=== PATIENT | female | born 1995 | race Caucasian/White ===

== ENCOUNTER 2016-09-12 10:11 | Emergency (ER) | payer OTHER ==
[~2016-09-12] VITALS: Ht 167.6 cm; Wt 132.0 kg
[~2016-09-12 10:11] MED LIST: PARO1TAB29 PO; SPR28 PO
[2016-09-12 10:16] VITALS: TEMP 36.6; Ht 167.6 cm; Wt 132.0 kg
[2016-09-12] MEDS ORDERED: VORT1TAB3 PO (10:35)
[2016-09-12 11:04] LABS: URINE APPEARANCE CLEAR (CLEAR); URINE BILIRUBIN NEG (NEG); URINE COLOR YELLOW; URINE NITRITE NEG (NEG); URINE PH 5.5 (4.5-7.5); URINE SPECIFIC GRAVITY 1.025 (1.000-1.030); UROBILINOGEN NEG (NEG)
--- NOTE | 2016-09-12 11:04 | EMERGENCY ROOM VISIT NOTE ---
History Report prepared by Mari: Germán Baron Under the Supervision of: Dr. Tracy Solano M.D. First contact with patient: 10:41 Chief Complaint: MENTAL HEALTH EVALUATION Stated Complaint: SEVERE ANXIETY/DEPRESSION, MEDICATION NOT WORKING History of Present Illness The patient is a 20 year old female who presents to the Emergency Room with complaints of persistent anxiety that has been worsening over the past few weeks. The patient notes that she has been trying to see her PCP but has not been able to get in the office to see him. She notes that she feels like her medications are no longer working. The patient currently takes Trintellix and Ativan as needed. She notes that the Ativan does not seem to help her anxiety and that it just makes her tired. The patient complains of anxiety attacks where she feels like she can't breathe, has trouble controlling her thoughts, is crying, and feels more fatigued than normal. The patient denies suicidal ideation, thoughts of harming herself, alcohol, or other drug use at this time. She has not been hospitalized for anxiety or depression in the past. Currently, she is interested in inpatient treatment for her symptoms because she feels that she has not been functioning normally. Source of History: patient Onset: past few weeks Position: other (global) Timing: worsening, other (persistent) Associated Symptoms: + fatigue Note: Other associated symptoms: feeling like she can't breathe, trouble controlling her thoughts, crying Denies: suicidal ideation, thoughts of harming herself, alcohol use, drug use Review of Systems See HPI for pertinent positives & negatives. A total of 10 systems reviewed and were otherwise negative. Past Medical & Surgical Medical Problems: (1) No Known Active Medical Problems Family History No significant family history Social History Smoking Status: Never Smoker Alcohol Use: none Marital Status: single Housing Status: lives with family Occupation Status: employed Current/Historical Medications Scheduled Vortioxetine HBr (Trintellix), 20 MG PO DAILY Scheduled PRN Lorazepam (Ativan), 0.5 MG PO UD PRN for Anxiety Allergies Coded Allergies: Sertraline (Verified Adverse Reaction, Intermediate, "makes me feel not myself", 09/12/16) Physical Exam Vital Signs Date Time Temp Pulse Resp B/P Pulse Ox O2 Delivery O2 Flow Rate FiO2 09/12/16 13:41 79 18 156/98 98 09/12/16 12:45 80 18 138/98 98 Room Air 09/12/16 10:59 77 18 131/97 97 Room Air 09/12/16 10:16 36.6 99 18 167/109 97 Room Air Physical Exam Vital signs reviewed. General: Obese. well-appearing female, in no significant distress. HEENT: No scleral icterus, PERRLA, neck supple. Atraumatic. Cardiovascular: Regular rate and rhythm, no extra sounds. Pulmonary: Clear to auscultation bilaterally, normal work of breathing. Abdomen: Soft, nontender, nondistended, positive bowel sounds. Musculoskeletal: Atraumatic, no peripheral edema. Neurologic: Patient awake alert and oriented x 3, full strength in all 4 extremities. Cranial nerves 2 through 12 grossly intact. Skin: Warm, dry, no rash Psych: negative suicidal or homicidal ideation Medical Decision & Procedures Laboratory Results 09/12/16 11:53 Red Blood Count 4.82, Mean Corpuscular Volume 85.1, Mean Corpuscular Hemoglobin 29.9, Mean Corpuscular Hemoglobin Concent 35.1, Mean Platelet Volume 8.9, Neutrophils (%) (Auto) 60.3, Lymphocytes (%) (Auto) 31.0, Monocytes (%) (Auto) 7.6, Eosinophils (%) (Auto) 0.6, Basophils (%) (Auto) 0.4, Neutrophils # (Auto) 4.31, Lymphocytes # (Auto) 2.21, Monocytes # (Auto) 0.54, Eosinophils # (Auto) 0.04, Basophils # (Auto) 0.03 09/12/16 11:53 Test 09/12/16 10:30 09/12/16 10:43 09/12/16 11:53 Urine Color YELLOW Urine Appearance CLEAR (CLEAR) Urine pH 5.5 (4.5-7.5) Urine Specific [place] 1.025 (1.000-1.030) Urine Protein NEG (NEG) Urine Glucose (UA) NEG (NEG) Urine Ketones NEG (NEG) Urine Occult Blood 3+ (NEG) Urine Nitrite NEG (NEG) Urine Bilirubin NEG (NEG) Urine Urobilinogen NEG (NEG) Urine Leukocyte Esterase NEG (NEG) Urine WBC (Auto) 1-5 /hpf (0-5) Urine RBC (Auto) 5-10 /hpf (0-4) Urine Hyaline Casts (Auto) 1-5 /lpf (0-5) Urine Epithelial Cells (Auto) >30 /lpf (0-5) Urine Bacteria (Auto) NEG (NEG) Urine Opiates Screen NEG (NEG) Urine Methadone, Qualitative NEG (NEG) Urine Barbiturates NEG (NEG) Urine Phencyclidine (PCP) Level NEG (NEG) Ur Amphetamine/Methamphetamine NEG (NEG) MDMA (Ecstasy) Screen NEG (NEG) Urine Benzodiazepines Screen NEG (NEG) Urine Cocaine Metabolite NEG (NEG) Urine Marijuana (THC) NEG (NEG) Bedside Urine Test NEG (NEG) White Blood Count 7.14 K/uL (4.8-10.8) Red Blood Count 4.82 M/uL (4.2-5.4) Hemoglobin 14.4 g/dL (12.0-16.0) Hematocrit 41.0 % (37-47) Mean Corpuscular Volume 85.1 fL (80-100) Mean Corpuscular Hemoglobin 29.9 pg (25-34) Mean Corpuscular Hemoglobin Concent 35.1 g/dl (32-36) Platelet Count 242 K/uL (130-400) Mean Platelet Volume 8.9 fL (7.4-10.4) Neutrophils (%) (Auto) 60.3 % Lymphocytes (%) (Auto) 31.0 % Monocytes (%) (Auto) 7.6 % Eosinophils (%) (Auto) 0.6 % Basophils (%) (Auto) 0.4 % Neutrophils # (Auto) 4.31 K/uL (1.4-6.5) Lymphocytes # (Auto) 2.21 K/uL (1.2-3.4) Monocytes # (Auto) 0.54 K/uL (0.11-0.59) Eosinophils # (Auto) 0.04 K/uL (0-0.5) Basophils # (Auto) 0.03 K/uL (0-0.2) RDW Standard Deviation 37.6 fL (36.4-46.3) RDW Coefficient of Variation 12.2 % (11.5-14.5) Immature Granulocyte % (Auto) 0.1 % Immature Granulocyte # (Auto) 0.01 K/uL (0.00-0.02) Anion Gap 10.0 mmol/L (3-11) Est Creatinine Clear Calc Drug Dose 150.1 ml/min Estimated GFR () 117.7 Estimated GFR (Non- 101.6 BUN/Creatinine Ratio 15.5 (10-20) Calcium Level 8.6 mg/dl (8.5-10.1) Total Bilirubin 0.6 mg/dl (0.2-1) Direct Bilirubin 0.1 mg/dl (0-0.2) Aspartate Amino Transf (AST/SGOT) 42 U/L (15-37) Alanine Aminotransferase (ALT/SGPT) 95 U/L (12-78) Alkaline Phosphatase 91 U/L (45-117) Total Protein 7.7 gm/dl (6.4-8.2) Albumin 3.7 gm/dl (3.4-5.0) Salicylates Level < 1.7 mg/dl (2.8-20) Acetaminophen Level < 2 ug/ml (10-30) Ethyl Alcohol mg/dL < 3.0 mg/dl (0-3) Laboratory results per my review. ED Course 1042: Past medical records reviewed. The patient was evaluated in room A6. A complete history and physical examination was performed. 1317: Upon reevaluation, the patient appeared to have improvement of her symptoms. I discussed findings with her. She verbalized agreement of the treatment plan. The patient was discharged home. Medical Decision Differential diagnosis: Etiologies such as mood disorder, infection, hypoglycemia, electrolyte abnormalities, cardiac sources, intracerebral event, toxicologic, neurologic, as well as others were entertained. This pt was evaluated and medically cleared. She was evaluated by mental health shelter case manager. Pt has never been inpatient for psychiatric care, nor has she had outpt counseling. At this time she does not meet criteria for inpt care but arrangements for psychiatric intake exam have been made for tomorrow. Pt is happy with the plan and agrees. She will return to the ED for worsening of symptoms or any medical concerns. Impression Primary Impression: Acute anxiety Scribe Attestation The scribe's documentation has been prepared under my direction and personally reviewed by me in its entirety. I confirm that the note above accurately reflects all work, treatment, procedures, and medical decision making performed by me. Departure Information Dispostion Home / Self-Care Referrals Jesus Harrison M.D. (PCP) Forms HOME CARE DOCUMENTATION FORM, IMPORTANT VISIT INFORMATION Patient Instructions My [facility] Additional Instructions Diagnosis: Acute anxiety Continue your medications as prescribed. Follow-up with [facility] tomorrow as scheduled for intake regarding a psychiatrist and counselor. Return to the ER immediately for worsening of symptoms, suicidal thoughts or any medical concerns. Contact [facility] for emergent psychiatric needs.
[2016-09-12 11:27] LABS: BENZODIAZEPINE, URINE NEG (NEG); COCAINE,URINE NEG (NEG); PHENCYCLIDINE, URINE NEG (NEG)
[2016-09-12 11:32] LABS: MANUAL MICROSCOPIC REQUIRED? NO; REVIEW REQ? NO; URINE EPITHELIAL CELL AUTO >30 /lpf (0-5); ZZUR CULT IF INDIC CLEAN CATCH NO
[2016-09-12 12:08] LABS: BASO % 0.4 %; BASO ABS # 0.03 K/uL (0-0.2); COMPLETE YES; EOS % 0.6 %; IG% 0.1 %; LYMPH ABS # 2.21 K/uL (1.2-3.4); MEAN CELL VOLUME 85.1 fL (80-100); MEAN CORPUSCULAR HEMOGLOBIN 29.9 pg (25-34); MEAN CORPUSCULAR HGB CONC 35.1 g/dl (32-36); MEAN PLATELET VOLUME 8.9 fL (7.4-10.4); MONO % 7.6 %; NEUT % 60.3 %; PLATELET COUNT 242 K/uL (130-400); RED BLOOD COUNT 4.82 M/uL (4.2-5.4); WHITE BLOOD COUNT 7.14 K/uL (4.8-10.8)
[2016-09-12 12:26] LABS: BUN/CREATININE RATIO 15.5 (10-20); CALCIUM 8.6 mg/dl (8.5-10.1); CREATININE 0.82 mg/dl (0.60-1.20); POTASSIUM 3.7 mmol/L (3.5-5.1)
[2016-09-12 12:29] LABS: ACETAMINOPHEN < 2 ug/ml (10-30)
[2016-09-12 13:41] VITALS: BP 156/98; PULSE 79; O2SAT 98
[2016-09-15 17:35] LABS: SYNTHETIC CANNABINOIDS QL URIN NEGATIVE (Negative)
[2016-10-21] MEDS ORDERED: LORA-741 PO (10:35)
== END 2016-09-12 13:46 | disposition home or self-care (01) ==
LOC: C.EDB 10:13 → C.EDA 13:46
DX: F41.9 Anxiety disorder, unspecified (principal)

== ENCOUNTER 2016-10-21 13:52 | Emergency (ER) | payer OTHER ==
[~2016-10-21] VITALS: Ht 167.6 cm; Wt 128.0 kg
[~2016-10-21 13:52] MED LIST changes: +LORA-741 PO; -PARO1TAB29 PO; -SPR28 PO; +VORT1TAB3 PO
[2016-10-21 13:57] VITALS: TEMP 36.9; Ht 167.6 cm; Wt 128.0 kg
[2016-10-21] MEDS ORDERED: SODIUM CHLORIDE 0.9% 1000ML 1,000 ML IV STA (14:28)
--- NOTE | 2016-10-21 14:51 | EMERGENCY ROOM VISIT NOTE ---
History First contact with patient: 14:20 Chief Complaint: OTHER COMPLAINT Stated Complaint: PROBLEMS W/BOWEL MOVEMENT, STOMACH PAIN History of Present Illness The patient is a 21 year old female who presents to the Emergency Room with complaints of constipation. The patient has a history of irritable bowel syndrome. The patient states that she was started on new anxiety medicine a few weeks ago. She states she has also started [employer] and has been watching what she eats. She states that she has had constipation. She states that she has been passing only very small amounts of stool. She states she has had sharp left-sided abdominal pain. She rates her discomfort an 8/10. She has been taking Colace. She states it has not helped. She denies any fevers or chills. She denies any pain in her chest or trouble breathing. She denies any nausea, vomiting or diarrhea. She denies any urinary symptoms. Review of Systems A 10 system review of systems was completed with positives and pertinent negatives listed in the HPI. Past Medical/Surgical History Medical Problems: (1) Anxiety Surgical Problems: (1) Hx of cholecystectomy Family History No significant family history Social History Smoking Status: Never Smoker Alcohol Use: none Marital Status: single Housing Status: lives with family Occupation Status: employed Current/Historical Medications Scheduled Protriptyline Hcl (Protriptyline Hcl), 5 MG PO BID Scheduled PRN Lorazepam (Ativan), 0.5 MG PO UD PRN for Anxiety Ondansetron (Ondansetron Odt), 1 TAB SL TID PRN for Nausea Allergies Coded Allergies: Sertraline (Verified Adverse Reaction, Intermediate, "makes me feel not myself", 09/12/16) Physical Exam Vital Signs Date Time Temp Pulse Resp B/P Pulse Ox O2 Delivery O2 Flow Rate FiO2 10/21/16 17:12 113 16 142/118 98 Room Air 10/21/16 13:57 36.9 81 16 159/96 98 Room Air Physical Exam VITALS: Vitals are noted on the nurse's note and reviewed by myself. Vital signs stable. The patient is afebrile. GENERAL: This is a 21-year-old female, in no acute distress, nondiaphoretic, well-developed well-nourished. SKIN: The skin was without rashes, erythema, edema, or bruising. There is no tenting of the skin. Capillary reflex less than 2 seconds. HEAD: Normocephalic atraumatic. EARS: The external ears are normal in appearance. EYES: Pupils equal round and reactive to light and accommodation. Conjunctivae without injection, sclerae without icterus. Extraocular movements intact. NOSE: Patent, turbinates without inflammation or discharge. MOUTH: Mucous membranes moist. Tonsils are not enlarged. Pharynx without erythema or exudate. Uvula midline. Airway patent. Tongue does not deviate. NECK: Supple without nuchal rigidity. No lymphadenopathy. No thyromegaly. Cervical spine is nontender. No JVD. HEART: Regular rate and rhythm without murmurs gallops or rubs. LUNGS: Clear to auscultation bilaterally without wheezes, rales or rhonchi. No retractions or accessory muscle use. ABDOMEN: Positive bowel sounds x 4. Soft, mild diffuse tenderness, without masses or organomegaly. MUSCULOSKELETAL: No muscle atrophy, erythema, or edema noted. Full range of motion in all extremities. Normal gait. Strength 5/5 throughout. NEURO: Patient was alert and oriented to person place and time. No focal neurological deficits. Medical Decision & Procedures ER Provider Diagnostic Interpretation: ABDOMEN 2VIEW W/PA CHEST RTN CLINICAL HISTORY: abdominal pain, constipation pain COMPARISON STUDY: None FINDINGS: Lungs are clear. Diaphragms smooth. Nonobstructive bowel pattern. Prior cholecystectomy. IMPRESSION: No acute process Laboratory Results 10/21/16 14:40 Red Blood Count 4.35, Mean Corpuscular Volume 87.4, Mean Corpuscular Hemoglobin 30.6, Mean Corpuscular Hemoglobin Concent 35.0, Mean Platelet Volume 9.6, Neutrophils (%) (Auto) 66.1, Lymphocytes (%) (Auto) 25.1, Monocytes (%) (Auto) 7.4, Eosinophils (%) (Auto) 1.0, Basophils (%) (Auto) 0.3, Neutrophils # (Auto) 5.08, Lymphocytes # (Auto) 1.93, Monocytes # (Auto) 0.57, Eosinophils # (Auto) 0.08, Basophils # (Auto) 0.02 10/21/16 14:40 Test 10/21/16 14:40 10/21/16 15:25 White Blood Count 7.69 K/uL (4.8-10.8) Red Blood Count 4.35 M/uL (4.2-5.4) Hemoglobin 13.3 g/dL (12.0-16.0) Hematocrit 38.0 % (37-47) Mean Corpuscular Volume 87.4 fL (80-100) Mean Corpuscular Hemoglobin 30.6 pg (25-34) Mean Corpuscular Hemoglobin Concent 35.0 g/dl (32-36) Platelet Count 256 K/uL (130-400) Mean Platelet Volume 9.6 fL (7.4-10.4) Neutrophils (%) (Auto) 66.1 % Lymphocytes (%) (Auto) 25.1 % Monocytes (%) (Auto) 7.4 % Eosinophils (%) (Auto) 1.0 % Basophils (%) (Auto) 0.3 % Neutrophils # (Auto) 5.08 K/uL (1.4-6.5) Lymphocytes # (Auto) 1.93 K/uL (1.2-3.4) Monocytes # (Auto) 0.57 K/uL (0.11-0.59) Eosinophils # (Auto) 0.08 K/uL (0-0.5) Basophils # (Auto) 0.02 K/uL (0-0.2) RDW Standard Deviation 41.4 fL (36.4-46.3) RDW Coefficient of Variation 12.8 % (11.5-14.5) Immature Granulocyte % (Auto) 0.1 % Immature Granulocyte # (Auto) 0.01 K/uL (0.00-0.02) Anion Gap 8.0 mmol/L (3-11) Est Creatinine Clear Calc Drug Dose 153.6 ml/min Estimated GFR () 124.2 Estimated GFR (Non- 107.2 BUN/Creatinine Ratio 12.2 (10-20) Calcium Level 8.7 mg/dl (8.5-10.1) Total Bilirubin 0.4 mg/dl (0.2-1) Aspartate Amino Transf (AST/SGOT) 25 U/L (15-37) Alanine Aminotransferase (ALT/SGPT) 53 U/L (12-78) Alkaline Phosphatase 90 U/L (45-117) Total Protein 7.5 gm/dl (6.4-8.2) Albumin 3.8 gm/dl (3.4-5.0) Globulin 3.7 gm/dl (2.5-4.0) Albumin/Globulin Ratio 1.0 (0.9-2) Urine Color YELLOW Urine Appearance TURBID (CLEAR) Urine pH 7.5 (4.5-7.5) Urine Specific [place] 1.024 (1.000-1.030) Urine Protein NEG (NEG) Urine Glucose (UA) NEG (NEG) Urine Ketones NEG (NEG) Urine Occult Blood NEG (NEG) Urine Nitrite NEG (NEG) Urine Bilirubin NEG (NEG) Urine Urobilinogen NEG (NEG) Urine Leukocyte Esterase NEG (NEG) Urine WBC (Auto) 5-10 /hpf (0-5) Urine RBC (Auto) 0-4 /hpf (0-4) Urine Hyaline Casts (Auto) 5-10 /lpf (0-5) Urine Epithelial Cells (Auto) >30 /lpf (0-5) Urine Bacteria (Auto) 1+ (NEG) Urine Test NEG (NEG) Medications Administered Medications (Trade) Dose Ordered Sig/Martin Route Start Time Stop Time Status Last Admin Dose Admin Magnesium Citrate (Citrate Of Magnesia Soln) 296 ml ONE STAT PO 10/21/16 16:45 10/21/16 16:47 DC 10/21/16 17:07 296 ML ED Course The patient was seen and examined. Previous visits were reviewed. The patient does not have a fever or leukocytosis. She does not have any significant electrolyte abnormality. Urinalysis suggests contamination. Urine test was negative. Plain films of the abdomen reveal nonobstructive bowel pattern The patient requested the IV be removed because it was uncomfortable. She was not given IV fluids. The patient presents with a reported history of constipation. She had very mild diffuse abdominal tenderness on examination. She does not have a fever or leukocytosis. I do not suspect an acute abdomen at this time. The patient was given mag citrate to take at home. She should return with localized abdominal pain, vomiting, fevers or generalized worsening symptoms. Otherwise, she should follow-up with her family doctor next week. The case was discussed with Dr. Tsang who agrees with the assessment and management plan. Medical Decision DIFFERENTIAL DIAGNOSIS: Hepatitis, cholecystitis, cholangitis, biliary colic, pancreatitis, pneumonia, subdiaphragmatic abscess, appendicitis, inguinal hernia , nephrolithiasis, inflammatory bowel disease, mesenteric adenitis, peptic ulcer disease, GERD, gastritis, pancreatitis, myocardial infarction, pericarditis, ruptured aortic aneurysm, appendicitis, gastroenteritis, bowel obstruction, splenic infarct, diverticulitis, mesenteric ischemia, metabolic, peritonitis, among others. Impression Primary Impression: Constipation Departure Information Dispostion Home / Self-Care Condition GOOD Referrals Jesus Harrison M.D. (PCP) Forms HOME CARE DOCUMENTATION FORM, IMPORTANT VISIT INFORMATION, WORK / SCHOOL INSTRUCTIONS Patient Instructions Constipation, My [employer] Additional Instructions Take the mag citrate when you get home Follow up with your family doctor next week for further evaluation and management Return with worsening symptoms Work Instructions Return To Work: 1 day Problem Qualifiers Primary Impression: Constipation
[2016-10-21 14:55] LABS: BASO % 0.3 %; BASO ABS # 0.02 K/uL (0-0.2); COMPLETE YES; IG% 0.1 %; LYMPH % 25.1 %; LYMPH ABS # 1.93 K/uL (1.2-3.4); MEAN CELL VOLUME 87.4 fL (80-100); MEAN CORPUSCULAR HEMOGLOBIN 30.6 pg (25-34); MEAN PLATELET VOLUME 9.6 fL (7.4-10.4); MONO % 7.4 %; NEUT % 66.1 %; PLATELET COUNT 256 K/uL (130-400); RED BLOOD COUNT 4.35 M/uL (4.2-5.4); WHITE BLOOD COUNT 7.69 K/uL (4.8-10.8)
[2016-10-21 15:11] LABS: BUN/CREATININE RATIO 12.2 (10-20); CALCIUM 8.7 mg/dl (8.5-10.1); CREATININE 0.78 mg/dl (0.60-1.20); POTASSIUM 3.5 mmol/L (3.5-5.1)
[2016-10-21] MEDS ORDERED: ZFRODT4HP SL (15:28)
[2016-10-21] MEDS ORDERED: PROT5TAB PO (15:28)
[2016-10-21 16:04] LABS: URINE APPEARANCE TURBID (CLEAR); URINE BILIRUBIN NEG (NEG); URINE COLOR YELLOW; URINE EPITHELIAL CELL AUTO >30 /lpf (0-5); URINE NITRITE NEG (NEG); URINE PH 7.5 (4.5-7.5); URINE SPECIFIC GRAVITY 1.024 (1.000-1.030); UROBILINOGEN NEG (NEG); ZZUR CULT IF INDIC CLEAN CATCH YES
[2016-10-21 16:22] LABS: MANUAL MICROSCOPIC REQUIRED? NO; REVIEW REQ? NO
--- NOTE | 2016-10-21 16:36 | DIAGNOSTIC IMAGING REPORT ---
ABDOMEN 2VIEW W/PA CHEST RTN CLINICAL HISTORY: abdominal pain, constipation pain COMPARISON STUDY: None FINDINGS: Lungs are clear. Diaphragms smooth. Nonobstructive bowel pattern. Prior cholecystectomy. IMPRESSION: No acute process Electronically signed by: Antonio Bartholomew M.D. 10/21/2016 4:35 PM Dictated Date/Time: 10/21/2016 4:34 PM
[2016-10-21] MEDS ORDERED: MAGNESIUM CITRATE 296 ML/BTL PO STA (16:45)
[2016-10-21 17:12] VITALS: BP 142/118; PULSE 113; O2SAT 98
== END 2016-10-21 17:26 | disposition home or self-care (01) ==
LOC: C.EDB 13:54
DX: K59.00 Constipation, unspecified (principal); F41.9 Anxiety disorder, unspecified; Z90.49 Acquired absence of other specified parts of digestive tract; Z79.899 Other long term (current) drug therapy

== ENCOUNTER 2017-01-25 13:19 | Emergency (ER) | payer OTHER ==
[~2017-01-25] VITALS: Ht 167.6 cm; Wt 126.0 kg
[~2017-01-25 13:19] MED LIST changes: +PROT5TAB PO; -VORT1TAB3 PO; +ZFRODT4HP SL
[2017-01-25 13:21] VITALS: TEMP 36.7; Ht 167.6 cm; Wt 126.0 kg
[2017-01-25] MEDS ORDERED: ESCI10TA17 PO (13:48)
--- NOTE | 2017-01-25 14:07 | EMERGENCY ROOM VISIT NOTE ---
History First contact with patient: 13:31 Chief Complaint: DIZZY Stated Complaint: DIZZY, NAUSEA Nursing Triage Summary: Patient reprots dizziness and nausea x one week History of Present Illness The patient is a 21 year old female who presents to the Emergency Room with complaints of dizziness for the past one week. The patient states that she has had dizziness and nausea daily for the past one week. She reports that these symptoms occur every day. They come on gradually and become worse throughout the day, then get better at night. She states that she feels lightheaded and like the room is spinning. She denies anything that makes the symptoms better or worse. She denies any vomiting. She does feel that she has had increased frequency of urination but denies other urinary symptoms. She initially thought that her symptoms may be due to anxiety, because she does have a history of anxiety and depression. She denies any other significant medical problems. She denies any history of similar symptoms. She denies shortness of breath, fevers, abdominal pain, palpitations or syncope. Review of Systems A complete 10 point review of systems was reviewed with the patient with pertinent positives and negatives as per history of present illness. All else were negative. Past Medical/Surgical History Medical Problems: (1) Anxiety Surgical Problems: (1) Hx of cholecystectomy Family History No significant family history Social History Smoking Status: Never Smoker Alcohol Use: none Marital Status: single Housing Status: lives with family Occupation Status: employed Current/Historical Medications Scheduled Escitalopram (Lexapro), 10 MG PO DAILY Meclizine Hcl (Meclizine Hcl), 1 TAB PO TID Scheduled PRN Lorazepam (Ativan), 0.5 MG PO UD PRN for Anxiety Ondansetron (Ondansetron Odt), 1 TAB SL TID PRN for Nausea Allergies Coded Allergies: Sertraline (Verified Adverse Reaction, Intermediate, "makes me feel not myself", 01/25/17) Physical Exam Vital Signs Date Time Temp Pulse Resp B/P (MAP) Pulse Ox O2 Delivery O2 Flow Rate FiO2 01/25/17 17:29 103 18 134/92 99 01/25/17 16:49 105 18 135/98 98 Room Air 01/25/17 15:31 94 16 131/89 100 Room Air 01/25/17 14:15 94 17 123/93 97 Room Air 96 134/90 101 125/78 01/25/17 14:15 94 17 123/93 97 Room Air 01/25/17 13:58 119 01/25/17 13:21 36.7 86 20 163/119 100 Room Air Physical Exam VITALS: Vitals are noted on the nurse's note and reviewed by myself. Vital signs stable. GENERAL: This is a 21-year-old female, in no acute distress, nondiaphoretic, well-developed well-nourished. SKIN: The skin was without rashes. HEAD: Normocephalic atraumatic. EARS: External auditory canals clear, tympanic membranes pearly crooks without erythema or effusion bilaterally. EYES: Pupils equal round and reactive to light and accommodation. Conjunctivae without injection, sclerae without icterus. Extraocular movements intact. No nystagmus. MOUTH: Mucous membranes moist. Pharynx without erythema or exudate. NECK: Supple without nuchal rigidity. No lymphadenopathy. HEART: Regular rate and rhythm without murmurs gallops or rubs. LUNGS: Clear to auscultation bilaterally without wheezes, rales or rhonchi. MUSCULOSKELETAL: Full range of motion throughout. Strength 5/5 throughout. NEURO: Patient was alert and oriented to person place and time. Normal sensation to light and sharp touch. No focal neurological deficits. Normal finger to nose testing. Medical Decision & Procedures ER Provider Diagnostic Interpretation: SINGLE VIEW CHEST CLINICAL HISTORY: Dizziness. FINDINGS: An AP, portable, upright chest radiograph is compared to study dated 10/21/2016. The examination is degraded by portable technique, large body habitus, and patient rotation. The cardiomediastinal silhouette is unremarkable. The lungs and pleural spaces are clear. No pneumothorax is seen. The bony thorax is grossly intact. IMPRESSION: No active disease in the chest. Laboratory Results 01/25/17 14:05 Red Blood Count 4.60, Mean Corpuscular Volume 88.3, Mean Corpuscular Hemoglobin 30.0, Mean Corpuscular Hemoglobin Concent 34.0, Mean Platelet Volume 9.1, Neutrophils (%) (Auto) 67.1, Lymphocytes (%) (Auto) 22.8, Monocytes (%) (Auto) 8.7, Eosinophils (%) (Auto) 0.8, Basophils (%) (Auto) 0.3, Neutrophils # (Auto) 6.43, Lymphocytes # (Auto) 2.18, Monocytes # (Auto) 0.83, Eosinophils # (Auto) 0.08, Basophils # (Auto) 0.03 01/25/17 14:05 Test 01/25/17 14:05 01/25/17 15:40 White Blood Count 9.58 K/uL (4.8-10.8) Red Blood Count 4.60 M/uL (4.2-5.4) Hemoglobin 13.8 g/dL (12.0-16.0) Hematocrit 40.6 % (37-47) Mean Corpuscular Volume 88.3 fL (80-100) Mean Corpuscular Hemoglobin 30.0 pg (25-34) Mean Corpuscular Hemoglobin Concent 34.0 g/dl (32-36) Platelet Count 288 K/uL (130-400) Mean Platelet Volume 9.1 fL (7.4-10.4) Neutrophils (%) (Auto) 67.1 % Lymphocytes (%) (Auto) 22.8 % Monocytes (%) (Auto) 8.7 % Eosinophils (%) (Auto) 0.8 % Basophils (%) (Auto) 0.3 % Neutrophils # (Auto) 6.43 K/uL (1.4-6.5) Lymphocytes # (Auto) 2.18 K/uL (1.2-3.4) Monocytes # (Auto) 0.83 K/uL (0.11-0.59) Eosinophils # (Auto) 0.08 K/uL (0-0.5) Basophils # (Auto) 0.03 K/uL (0-0.2) RDW Standard Deviation 38.4 fL (36.4-46.3) RDW Coefficient of Variation 12.0 % (11.5-14.5) Immature Granulocyte % (Auto) 0.3 % Immature Granulocyte # (Auto) 0.03 K/uL (0.00-0.02) Anion Gap 6.0 mmol/L (3-11) Est Creatinine Clear Calc Drug Dose 160.4 ml/min Estimated GFR () 132.4 Estimated GFR (Non- 114.2 BUN/Creatinine Ratio 16.1 (10-20) Calcium Level 9.4 mg/dl (8.5-10.1) Total Bilirubin 0.4 mg/dl (0.2-1) Aspartate Amino Transf (AST/SGOT) 13 U/L (15-37) Alanine Aminotransferase (ALT/SGPT) 29 U/L (12-78) Alkaline Phosphatase 105 U/L (45-117) Troponin I < 0.015 ng/ml (0-0.045) Total Protein 7.9 gm/dl (6.4-8.2) Albumin 3.8 gm/dl (3.4-5.0) Globulin 4.1 gm/dl (2.5-4.0) Albumin/Globulin Ratio 0.9 (0.9-2) Thyroid Stimulating Hormone (TSH) 1.810 uIu/ml (0.300-4.500) Human Chorionic Gonadotropin, Qual NEG (NEG) Urine Color YELLOW Urine Appearance CLOUDY (CLEAR) Urine pH 6.5 (4.5-7.5) Urine Specific [place] 1.022 (1.000-1.030) Urine Protein NEG (NEG) Urine Glucose (UA) NEG (NEG) Urine Ketones NEG (NEG) Urine Occult Blood NEG (NEG) Urine Nitrite NEG (NEG) Urine Bilirubin NEG (NEG) Urine Urobilinogen NEG (NEG) Urine Leukocyte Esterase NEG (NEG) Urine WBC (Auto) 5-10 /hpf (0-5) Urine RBC (Auto) 0-4 /hpf (0-4) Urine Hyaline Casts (Auto) 0 /lpf (0-5) Urine Epithelial Cells (Auto) >30 /lpf (0-5) Urine Bacteria (Auto) 1+ (NEG) Urine Renal Epithelial Cells /lpf (0-5) Urine Mucus PRESENT (NONE PRSENT) Urine Test NEG (NEG) ECG Indication: other Rate (beats per minute): 90 Rhythm: normal sinus Findings: no acute ischemic change, no ectopy Comparison ECG Date: no prior available Medical Decision Differential diagnosis includes BPPV, CVA, TIA, orthostatic hypotension, arrhythmia, among others. The patient is a 21-year-old female who presents today complaining of dizziness and lightheadedness. Labs revealed no leukocytosis, anemia or concerning electrolyte abnormalities. Urinalysis was not suggestive of infection. Urine was negative. EKG was interpreted by myself and shows no acute findings. Patient had a benign neurological examination. Orthostatic vital signs were negative. The patient will need to follow-up with her primary care provider within 48 hours for further evaluation. She will be given a prescription for meclizine to try for her dizziness. She was instructed to return here for worsening symptoms. The patient's case was reviewed with Dr. Perez, ED attending physician, who agreed with my assessment and treatment plan. Based on the patient's presentation and work up, I feel the patient is stable for outpatient treatment. The patient was educated to return to the emergency department for any worsening of their current condition or new/concerning symptoms. She will follow up with her primary care provider. Medication reconciliation: I attest that I have personally reviewed the patient 's current medication list. Blood pressure screening: Patient was found to have normal blood pressure on screening and does not require follow-up. Impression Primary Impression: Dizziness Departure Information Dispostion Home / Self-Care Condition GOOD Prescriptions Meclizine Hcl (MECLIZINE HCL) 25 Mg Tab 1 TAB PO TID for 7 Days, #21 TAB Prov: Jocelyne Holly ., ABDIRIZAK 01/25/17 Referrals Gabe Reynolds M.D. (PCP) Patient Instructions [facility] Additional Instructions Meclizine up to 3 times daily as needed for dizziness. Rest and drink plenty of fluids. Call your primary care provider tomorrow to schedule a follow-up appointment. Return to the emergency department as needed for any worsening or new/ concerning symptoms.
[2017-01-25 14:15] LABS: BASO % 0.3 %; BASO ABS # 0.03 K/uL (0-0.2); COMPLETE YES; EOS % 0.8 %; HEMATOCRIT 40.6 % (37-47); IG% 0.3 %; LYMPH % 22.8 %; LYMPH ABS # 2.18 K/uL (1.2-3.4); MEAN CELL VOLUME 88.3 fL (80-100); MEAN PLATELET VOLUME 9.1 fL (7.4-10.4); MONO % 8.7 %; NEUT % 67.1 %; PLATELET COUNT 288 K/uL (130-400); WHITE BLOOD COUNT 9.58 K/uL (4.8-10.8)
[2017-01-25 14:33] LABS: ALT/SGPT 29 U/L (12-78); BLOOD UREA NITROGEN 12 mg/dl (7-18); BUN/CREATININE RATIO 16.1 (10-20); CALCIUM 9.4 mg/dl (8.5-10.1); CARBON DIOXIDE 28 mmol/L (21-32); CHLORIDE 105 mmol/L (98-107); CREATININE 0.74 mg/dl (0.60-1.20); GLUCOSE 86 mg/dl (70-99); POTASSIUM 3.9 mmol/L (3.5-5.1); SODIUM 139 mmol/L (136-145)
[2017-01-25 14:44] LABS: ALB/GLOB RATIO 0.9 (0.9-2); ALKALINE PHOSPHATASE 105 U/L (45-117); AST/SGOT 13 U/L (15-37)
--- NOTE | 2017-01-25 14:46 | DIAGNOSTIC IMAGING REPORT ---
SINGLE VIEW CHEST CLINICAL HISTORY: Dizziness. FINDINGS: An AP, portable, upright chest radiograph is compared to study dated 10/21/2016. The examination is degraded by portable technique, large body habitus, and patient rotation. The cardiomediastinal silhouette is unremarkable. The lungs and pleural spaces are clear. No pneumothorax is seen. The bony thorax is grossly intact. IMPRESSION: No active disease in the chest. Electronically signed by: Félix Dobbins M.D. 01/25/2017 2:44 PM Dictated Date/Time: 01/25/2017 2:44 PM
[2017-01-25 15:37] LABS: PREG INTERNAL NEGATIVE QC NEG CLEAR BACKGROUND; PREG INTERNAL POSITIVE QC POS CONTROL LINE
[2017-01-25 15:57] LABS: URINE APPEARANCE CLOUDY (CLEAR); URINE BILIRUBIN NEG (NEG); URINE COLOR YELLOW; URINE EPITHELIAL CELL AUTO >30 /lpf (0-5); URINE NITRITE NEG (NEG); URINE PH 6.5 (4.5-7.5); URINE SPECIFIC GRAVITY 1.022 (1.000-1.030); UROBILINOGEN NEG (NEG); ZZUR CULT IF INDIC CLEAN CATCH YES
[2017-01-25 16:00] LABS: MANUAL MICROSCOPIC REQUIRED? NO; REVIEW REQ? YES
[2017-01-25 16:13] LABS: URINE MUCUS PRESENT (NONE PRSENT)
[2017-01-25] MEDS ORDERED: MECL1TAB42 PO (17:20)
[2017-01-25 17:29] VITALS: BP 134/92; PULSE 103; O2SAT 99
== END 2017-01-25 17:43 | disposition home or self-care (01) ==
LOC: C.EDB 13:21
DX: R42 Dizziness and giddiness (principal); R11.0 Nausea; F41.9 Anxiety disorder, unspecified; F32.9 Major depressive disorder, single episode, unspecified

== ENCOUNTER 2017-03-07 18:55 | Inpatient (IN) | payer OTHER ==
[~2017-03-07] VITALS: Ht 167.6 cm; Wt 129.6 kg
[~2017-03-07 18:55] MED LIST changes: +ESCI10TA17 PO; -PROT5TAB PO
--- NOTE | 2017-03-07 19:44 | EMERGENCY ROOM VISIT NOTE ---
History Report prepared by Mari: Elizabet Alonso Under the Supervision of: Dr. Frank Kaye M.D. First contact with patient: 19:18 Chief Complaint: MENTAL HEALTH EVALUATION Stated Complaint: SEVERE DEPRESSION,ANXIETY History of Present Illness The patient is a 21 year old female who presents to the Emergency Room with complaints of worsening anxiety and depression that began in September. The patient states that she has been receiving her psychiatric care and medications from her PCP. She states that she was placed on Protriptyline around one year ago. The patient states that two months after that she was placed on Lexapro. She states that in September she stopped both medications. The patient states that she wants to get in to see a psychiatrist, but states that she is on a wait- list for [facility] for 90 days. She denies any suicidal ideation or homicidal ideation. The patient states that she was hospitalized in the past for psychiatric reasons. She denies any drug use, tobacco use, or alcohol use. The patient states that she has been unable to function, noting that she has missed an entire week of work due to her anxiety. The patient's boyfriend states that the patient has no ambition. The patient states that she is feeling hopeless. She denies anything specific making her depression or anxiety worse. The patient states that she would prefer to go inpatient for further psychiatric care. She states that she notices nausea and diarrhea when her anxiety is bad. The patient denies any fever, chills, cough, congestion, vomiting, constipation, or burning with urination. Source of History: patient Onset: September Position: other (global) Quality: other (anxiety and depression) Timing: worsening Associated Symptoms: + nausea, + diarrhea, No fevers, No chills, No cough, No vomiting, No urinary symptoms Review of Systems See HPI for pertinent positives and negatives. A total of ten systems were reviewed and were otherwise negative. Past Medical & Surgical Medical Problems: (1) Anxiety (2) Obesity Surgical Problems: (1) Hx of cholecystectomy Social History Problems: (1) Sexually active Family History No significant family history Social History Smoking Status: Never Smoker Alcohol Use: none Marital Status: single Housing Status: lives with family Occupation Status: employed Current/Historical Medications Scheduled Ethinyl Estradiol/Norethindr (Junel 08/19), 1 TAB PO DAILY Scheduled PRN Lorazepam (Ativan), 0.5 MG PO UD PRN for Anxiety Allergies Coded Allergies: Sertraline (Verified Adverse Reaction, Intermediate, "makes me feel not myself", 03/07/17) Physical Exam Vital Signs Date Time Temp Pulse Resp B/P (MAP) Pulse Ox O2 Delivery O2 Flow Rate FiO2 03/07/17 21:38 36.7 138 20 140/80 98 03/07/17 18:57 36.7 138 20 166/116 98 Room Air Physical Exam GENERAL: Awake, alert, well-appearing, in no distress HENT: Normocephalic, atraumatic. Oropharynx unremarkable. EYES: Normal conjunctiva. Sclera non-icteric. NECK: Supple. No nuchal rigidity. FROM. No JVD. RESPIRATORY: Clear to auscultation. CARDIAC: Regular rate, normal rhythm. Extremities warm and well perfused. Pulses equal. ABDOMEN: Soft, non-distended. No tenderness to palpation. No rebound or guarding. No masses. RECTAL: Deferred. MUSCULOSKELETAL: Chest examination reveals no tenderness. The back is symmetrical on inspection without obvious abnormality. There is no CVA tenderness to palpation. No joint edema. LOWER EXTREMITIES: Calves are equal size bilaterally and non-tender. No edema. No discoloration. NEURO: Normal sensorium. No sensory or motor deficits noted. SKIN: No rash or jaundice noted. PSYCH: Flat depressed affect. Medical Decision & Procedures Laboratory Results 03/07/17 19:55 Red Blood Count 4.38, Mean Corpuscular Volume 89.3, Mean Corpuscular Hemoglobin 30.6, Mean Corpuscular Hemoglobin Concent 34.3, Mean Platelet Volume 9.9, Neutrophils (%) (Auto) 71.8, Lymphocytes (%) (Auto) 19.7, Monocytes (%) (Auto) 7.0, Eosinophils (%) (Auto) 0.8, Basophils (%) (Auto) 0.4, Neutrophils # (Auto) 7.61, Lymphocytes # (Auto) 2.09, Monocytes # (Auto) 0.74, Eosinophils # (Auto) 0.08, Basophils # (Auto) 0.04 03/07/17 19:55 Test 03/07/17 19:20 03/07/17 19:55 03/07/17 19:57 Urine Color YELLOW Urine Appearance CLEAR (CLEAR) Urine pH 6.0 (4.5-7.5) Urine Specific [place] 1.025 (1.000-1.030) Urine Protein NEG (NEG) Urine Glucose (UA) NEG (NEG) Urine Ketones NEG (NEG) Urine Occult Blood NEG (NEG) Urine Nitrite NEG (NEG) Urine Bilirubin NEG (NEG) Urine Urobilinogen NEG (NEG) Urine Leukocyte Esterase NEG (NEG) Urine Opiates Screen NEG (NEG) Urine Methadone, Qualitative NEG (NEG) Urine Barbiturates NEG (NEG) Urine Phencyclidine (PCP) Level NEG (NEG) Ur Amphetamine/Methamphetamine NEG (NEG) MDMA (Ecstasy) Screen NEG (NEG) Urine Benzodiazepines Screen NEG (NEG) Urine Cocaine Metabolite NEG (NEG) Urine Marijuana (THC) NEG (NEG) White Blood Count 10.59 K/uL (4.8-10.8) Red Blood Count 4.38 M/uL (4.2-5.4) Hemoglobin 13.4 g/dL (12.0-16.0) Hematocrit 39.1 % (37-47) Mean Corpuscular Volume 89.3 fL (80-100) Mean Corpuscular Hemoglobin 30.6 pg (25-34) Mean Corpuscular Hemoglobin Concent 34.3 g/dl (32-36) Platelet Count 272 K/uL (130-400) Mean Platelet Volume 9.9 fL (7.4-10.4) Neutrophils (%) (Auto) 71.8 % Lymphocytes (%) (Auto) 19.7 % Monocytes (%) (Auto) 7.0 % Eosinophils (%) (Auto) 0.8 % Basophils (%) (Auto) 0.4 % Neutrophils # (Auto) 7.61 K/uL (1.4-6.5) Lymphocytes # (Auto) 2.09 K/uL (1.2-3.4) Monocytes # (Auto) 0.74 K/uL (0.11-0.59) Eosinophils # (Auto) 0.08 K/uL (0-0.5) Basophils # (Auto) 0.04 K/uL (0-0.2) RDW Standard Deviation 40.1 fL (36.4-46.3) RDW Coefficient of Variation 12.4 % (11.5-14.5) Immature Granulocyte % (Auto) 0.3 % Immature Granulocyte # (Auto) 0.03 K/uL (0.00-0.02) Anion Gap 7.0 mmol/L (3-11) Est Creatinine Clear Calc Drug Dose 142.0 ml/min Estimated GFR () 111.9 Estimated GFR (Non- 96.6 BUN/Creatinine Ratio 18.4 (10-20) Calcium Level 8.7 mg/dl (8.5-10.1) Total Bilirubin 0.2 mg/dl (0.2-1) Direct Bilirubin < 0.1 mg/dl (0-0.2) Aspartate Amino Transf (AST/SGOT) 11 U/L (15-37) Alanine Aminotransferase (ALT/SGPT) 22 U/L (12-78) Alkaline Phosphatase 83 U/L (45-117) Total Protein 7.8 gm/dl (6.4-8.2) Albumin 3.5 gm/dl (3.4-5.0) Globulin 4.3 gm/dl (2.5-4.0) Albumin/Globulin Ratio 0.8 (0.9-2) Thyroid Stimulating Hormone (TSH) 2.140 uIu/ml (0.300-4.500) Ethyl Alcohol mg/dL < 3.0 mg/dl (0-3) Bedside Glucose 102 mg/dl (70-90) Laboratory results reviewed by ma ED Course 1923: The patient was evaluated in room A7. A complete history and physical exam was performed. 2038: Per the psych case packer, the patient has been accepted to [facility] for further treatment and evaluation. The patient is in agreement with the treatment plan. Medical Decision I reviewed the patient's past medical history, medications, and the nursing notes as described above. The patient's presentation and history were concerning for Depression, anxiety, dehydration, UTI, electrolyte imbalance. The patient with pmhx of anxiety and depression presents to the emergency department with worsening anxiety and depression, unable to function/go to work per HPI. On arrival appears depressed but in NAD. AFVSS. Exam unremarkable. Denies drug use, SI/HI, or attempts and self harm. While patient is not a danger to herself or others the severity of her sx to the point where she cannot go to work is concerning that she make continue to decline and therefore inpatient psych admission was requested. Labs unremarkable. Medically cleared and admitted to psych service. Medication Reconcilliation Current Medication List: was personally reviewed by me Blood Pressure Screening Patient's blood pressure: Elevated blood pressure Blood pressure disposition: Elevated BP felt to be situational, Did not require urgent referral Impression Primary Impression: Depression Scribe Attestation The scribe's documentation has been prepared under my direction and personally reviewed by me in its entirety. I confirm that the note above accurately reflects all work, treatment, procedures, and medical decision making performed by me. Departure Information Dispostion Mental Health Acute Care Referrals Marcos Stafford PA-C (PCP)
[2017-03-07 19:56] LABS: MANUAL MICROSCOPIC REQUIRED? NO; REVIEW REQ? NO; URINE APPEARANCE CLEAR (CLEAR); URINE BILIRUBIN NEG (NEG); URINE COLOR YELLOW; URINE NITRITE NEG (NEG); URINE SPECIFIC GRAVITY 1.025 (1.000-1.030); UROBILINOGEN NEG (NEG)
[2017-03-07 20:18] LABS: BENZODIAZEPINE, URINE NEG (NEG); COCAINE,URINE NEG (NEG); PHENCYCLIDINE, URINE NEG (NEG)
[2017-03-07 20:27] LABS: BASO % 0.4 %; BASO ABS # 0.04 K/uL (0-0.2); COMPLETE YES; EOS % 0.8 %; HEMATOCRIT 39.1 % (37-47); IG% 0.3 %; LYMPH % 19.7 %; LYMPH ABS # 2.09 K/uL (1.2-3.4); MEAN CELL VOLUME 89.3 fL (80-100); MEAN CORPUSCULAR HEMOGLOBIN 30.6 pg (25-34); MEAN CORPUSCULAR HGB CONC 34.3 g/dl (32-36); MEAN PLATELET VOLUME 9.9 fL (7.4-10.4); NEUT % 71.8 %; PLATELET COUNT 272 K/uL (130-400); RED BLOOD COUNT 4.38 M/uL (4.2-5.4); WHITE BLOOD COUNT 10.59 K/uL (4.8-10.8)
[2017-03-07 20:45] LABS: ALT/SGPT 22 U/L (12-78); BLOOD UREA NITROGEN 16 mg/dl (7-18); BUN/CREATININE RATIO 18.4 (10-20); CALCIUM 8.7 mg/dl (8.5-10.1); CARBON DIOXIDE 26 mmol/L (21-32); CHLORIDE 106 mmol/L (98-107); CREATININE 0.85 mg/dl (0.60-1.20); GLUCOSE 102 mg/dl (70-99); POTASSIUM 3.7 mmol/L (3.5-5.1); SODIUM 139 mmol/L (136-145)
[2017-03-07 20:55] LABS: ALB/GLOB RATIO 0.8 (0.9-2); ALKALINE PHOSPHATASE 83 U/L (45-117); AST/SGOT 11 U/L (15-37)
[2017-03-07 21:38] VITALS: O2SAT 98
[2017-03-07] MEDS ORDERED: NURSING VERBAL MED ORDER ONE (21:45)
[2017-03-07] MEDS ORDERED: hydrOXYzine HCL 25 MG TAB PO PRN ×2 (22:00)
[2017-03-07] MEDS ORDERED: ALUMINUM/MAGNESIUM SUSP 30 ML UDC PO PRN (22:00)
[2017-03-07] MEDS ORDERED: ACETAMINOPHEN 325 MG TAB PO PRN (22:00)
[2017-03-07] MEDS ORDERED: BISMUTH SUBSALICYLATE PER ML OMNICELL CHARGE PO PRN (22:00)
[2017-03-07] MEDS ORDERED: MAGNESIUM HYDROXIDE SUSP 30 ML UDC PO PRN (22:00)
[2017-03-07] MEDS ORDERED: SODIUM CHLORIDE 0.65% NA SOLN 45 ML (OCEAN) PRN (22:00)
[2017-03-07 22:49] VITALS: BP 148/107; PULSE 105; BMI 46.1
[2017-03-08 06:53] VITALS: Ht 167.6 cm; Wt 129.6 kg
[2017-03-08 06:58] VITALS: BP_SYST 116; BP_SYST 123; BP_DIAS 78; BP_DIAS 82; PULSE 89; PULSE 99; TEMP 36.7
[2017-03-08] MEDS ORDERED: JNL12021 PO (12:19)
[2017-03-08] MEDS ORDERED: DULOXETINE HCL 20 MG CAP PO ONE (12:40)
--- NOTE | 2017-03-08 12:40 | Psychiatric History & Physical ---
History Date of Service Mar 08, 2017. Identifying Data Olena Beckwith is a 21-year-old female who currently lives in [place] with her boyfriend, reports a history of depression and anxiety for which she has no outpatient providers, and was admitted on a 201 voluntary commitment after she presented to the emergency room with worsening mood and anxiety and inability to function. Chief Complaint "Anxiety and depression". History of Present Illness Patient reports a history of depression and anxiety since 5th or 6th grade, for which she's been in psychiatric treatment episodically in the past, and most recently managed by her PCP, and has been worsening since for the past 2-3 months, since she stopped taking psych meds. She describes moving frequently, from [place] to [place] then back to [place] before moving to [place]. She moved to [place] in October and says she has had difficulty getting outpatient mental health providers, and although she had an initial intake at [facility], she did not attend follow-up appointments, as she says she was not told about them. She is now unable to schedule with them for 90 days. She is not on psychotropic medications, but has been taking melatonin for sleep, and got a prescription for Ativan 0.5 mg when necessary [place] [address] Jesus Harrison. She reports low mood, poor energy, decreased appetite, disrupted sleep, daily crying spells, and decreased motivation. Sleep is disturbed by "laying there worrying about things," takes an hour to fall asleep , but sleeps through the night. She denies thoughts of not wanting to be alive or ending her life, is able to enjoy time with others, and is hopeful that things could improve. She also endorses increased anxiety, avoidance, and worrying about lots of things (paying her bills). Reports panic attacks with shakiness, SOB, sweating, and tearfulness, lasting minutes, and occurring 2-3 times a day. She has a prescription for Ativan 0.5mg from her PCP, which she uses twice a week. She has been staying home from work for the past week, lying in bed all day crying, and is fearful of losing her job. She has been getting psych meds from her PCP, [email or web address], and has tried multiple antidepressants, most recently protriptyline and escitalopram, which she took for a few months, and then tapered off them as they weren't working. She has not followed up with them, saying they have been "too booked." She describes a pattern of having a couple good days where she is "really happy" and feels good , and will abruptly become depressed and anxious without a trigger. She reports more bad days then good days, about 60% bad days. Good periods last hours, and denies decreased need for sleep or increase in goal directed behavior/pleasure seeking. Has never had a manic episode or psychotic symptoms. Denies OCD, PTSD, and eating disorder. Says she decided to come to the ER yesterday because "every day it's just getting worse, and knowing I was on the 90 day wait list just made it worse." Past Psychiatric History Current OP Treatment: no current treatment (was seen at [facility] for an initial appointment, and then missed her follow-up appointment, so is now unable to be seen there for 90 days) Prior OP Treatment: psychiatrist (at [facility] in the past) Prior Psych Hospitalizations: none Access to a Gun: No Suicide Attempts: No Past Medication Trials "A lot of things, can't remember a lot of them." sertraline - felt "like a zombie, really tired and cried all the time" escitalopram - took with protriptyline, says it was supposed to help with anxiety, but did not paroxetine - can't recall what happened buspirone - can't recall what happened venlafaxine XR - headaches Brintellix - seemed to help initially, then switched to Trintellix, which didn' t work Protriptyline - prescribed October [address] Marcos Stafford (PCP in [facility]), helped with depression, but panic worsened Trintellix - prescribe June [address] Jesus Harrison, ineffective citalopram - prescribed by psychiatrist at [facility], thinks it caused weight gain Has never tried Prozac, Cymbalta, aripiprazole. Additional Notes Diagnosed with depression, since 5th or 6th grade. Has had partial hospitalization and outpatient psychiatry and therapy in the past. Past Medical/Surgical History (1) Obesity PCP is [facility]. . Is sexually active, takes oral contraceptive but doesn't know the name. Last period was a month ago. Allergies Allergies: Coded Allergies: Sertraline (Verified Adverse Reaction, Intermediate, "makes me feel not myself", 03/07/17) Home Medications Scheduled PRN Lorazepam (Ativan), 0.5 MG PO UD PRN for Anxiety Family History No significant family history History of Suicide: Yes (multiple aunts on both sides attempted suicide by overdose) History of Substance Abuse: No Psychiatric History: Yes (most of dad's family has anxiety and depression, and great aunts and uncles on mother's side "have issues") Alcohol Use Alcohol Use In Past 12 Months: No AUDIT Total Score: 0 Smoking Use Smoking Status: Never Smoker Substance History Denies substance abuse. Personal History Lives in: an apartment in [place] with her boyfriend Jorge - moved here in Apr. Childhood: From [place]. Has a half-brother, and reports good relationship with parents. Education: graduated from high school Work History: Previously worked at a [employer] from 04/2016 - 01/2017 when she resigned, as they were mandating overtime and she felt unable to handle it, so she left. She started working at [employer] a few weeks ago, not sure if she still has a job as missed multiple days. Relationship History: never Children: None Spiritual Affiliation: denies Legal History: none Psychological Trauma History: Denies Hx Traumatic Event Review of Systems 10 systems reviewed, negative except as stated above. Examination Physical Examination A physical exam was performed [in the ER] [on the medical floor] prior to admission to the unit by [ ]. I accept that physical as correct/medical clearance for the inpatient physical exam. Vital Signs Vital Signs Past 12 Hours Date Time Temp Pulse Resp B/P (MAP) Pulse Ox O2 Delivery O2 Flow Rate FiO2 03/08/17 06:58 36.7 89 18 116/78 99 123/82 Laboratory Results Last 24 Hours Test 03/07/17 19:20 03/07/17 19:55 03/07/17 19:57 Urine Color YELLOW Urine Appearance CLEAR Urine pH 6.0 Urine Specific Dorado 1.025 Urine Protein NEG Urine Glucose (UA) NEG Urine Ketones NEG Urine Occult Blood NEG Urine Nitrite NEG Urine Bilirubin NEG Urine Urobilinogen NEG Urine Leukocyte Esterase NEG Urine Opiates Screen NEG Urine Methadone, Qualitative NEG Urine Barbiturates NEG Urine Phencyclidine (PCP) Level NEG Ur Amphetamine/Methamphetamine NEG MDMA (Ecstasy) Screen NEG Urine Benzodiazepines Screen NEG Urine Cocaine Metabolite NEG Urine Marijuana (THC) NEG White Blood Count 10.59 K/uL Red Blood Count 4.38 M/uL Hemoglobin 13.4 g/dL Hematocrit 39.1 % Mean Corpuscular Volume 89.3 fL Mean Corpuscular Hemoglobin 30.6 pg Mean Corpuscular Hemoglobin Concent 34.3 g/dl Platelet Count 272 K/uL Mean Platelet Volume 9.9 fL Neutrophils (%) (Auto) 71.8 % Lymphocytes (%) (Auto) 19.7 % Monocytes (%) (Auto) 7.0 % Eosinophils (%) (Auto) 0.8 % Basophils (%) (Auto) 0.4 % Neutrophils # (Auto) 7.61 K/uL Lymphocytes # (Auto) 2.09 K/uL Monocytes # (Auto) 0.74 K/uL Eosinophils # (Auto) 0.08 K/uL Basophils # (Auto) 0.04 K/uL RDW Standard Deviation 40.1 fL RDW Coefficient of Variation 12.4 % Immature Granulocyte % (Auto) 0.3 % Immature Granulocyte # (Auto) 0.03 K/uL Sodium Level 139 mmol/L Potassium Level 3.7 mmol/L Chloride Level 106 mmol/L Carbon Dioxide Level 26 mmol/L Anion Gap 7.0 mmol/L Blood Urea Nitrogen 16 mg/dl Creatinine 0.85 mg/dl Est Creatinine Clear Calc Drug Dose 142.0 ml/min Estimated GFR () 111.9 Estimated GFR (Non- 96.6 BUN/Creatinine Ratio 18.4 Random Glucose 102 mg/dl Calcium Level 8.7 mg/dl Total Bilirubin 0.2 mg/dl Direct Bilirubin < 0.1 mg/dl Aspartate Amino Transf (AST/SGOT) 11 U/L Alanine Aminotransferase (ALT/SGPT) 22 U/L Alkaline Phosphatase 83 U/L Total Protein 7.8 gm/dl Albumin 3.5 gm/dl Globulin 4.3 gm/dl Albumin/Globulin Ratio 0.8 Thyroid Stimulating Hormone (TSH) 2.140 uIu/ml Ethyl Alcohol mg/dL < 3.0 mg/dl Bedside Glucose 102 mg/dl Mental Examination During interview pt is: alert and oriented, cooperative Appearance: appropriately dressed, disheveled, other (obese) Eye contact is: fair Motor behavior is: steady gait & station, no abnormal motor movements Speech: normal in rate, rhythm & volume Affect: mood congruent, depressed Mood is: depressed Thought process: goal directed Thought content: reality based without delusions Suicidal thought are: denied Homicidal thoughts are: denied Hallucinations: denies auditory, denies visual Cognition: memory grossly intact, attention grossly intact, language grossly intact Intelligence estimated to be: average Insight: fair Judgement: fair Impression / Recommendations Impression 21 y/o SWF with depression and anxiety who presented requesting voluntary admission for worsening mood and anxiety and inability to function, having missed a week of work due to severity of symptoms. She has not been successful in setting up outpatient care and is on a wait list at [facility] as she missed appointments. Inventory Assets Strengths: Stable housing, supportive boyfriend, willing for treatment Risk Factors Assessment : Yes /single/: No Higher / Fall in social status: No Access to guns: No Health problems: No Mental Health Diagnoses: Yes Substance use disorders: No Previous attempt: No Family history of suicide: No Previous psychiatric stay: No Hopelessness: No Smoker: No Protective Factors Assessment Confucianist beliefs: No : No Responsible for young children: No Employed: Yes Stable relationships: Yes Supportive family: Yes Good rapport with provider: No Recommendations (1) Depression -Patient reports long-standing depression with mild mood swings, not consistent with bipolar, but may benefit from a mood stabilizer, which she has not tried in the past. She's had limited success with numerous antidepressant trials, so we discussed the different mood stabilizers, including lithium and lamotrigine, and she ultimately agreed to a trial of lamotrigine. We discussed common side effects, including Meyer-Keon syndrome, and what to expect from the medication if it is working. She was provided with an Up To Date patient handout on the medication, and will start 25 mg daily stay. We also discussed antidepressants, as she has not tried fluoxetine or duloxetine, we reviewed these in detail. She ultimately opted for a trial of duloxetine, as she does not feel she's had good responses to SSRIs in the past. We reviewed the risks, benefits, and side effects, and she was provided with an Up To Date patient handout on the medication. We'll start 20 mg daily, and titrate as tolerated. -Consider a trial of lithium in the future for treatment resistant depression if these medications are ineffective. -Discussed the importance of staying in treatment with psychiatric provider and therapist long-term, given the long-term nature of her symptoms, and treatment resistance with multiple failed medication trials. -Referred for case management, and explore options for outpatient mental health services locally (perhaps [facility] would make an exception in see her sooner, or could refer her to another local provider). She may need a med management appointment with her PCP in the interim if there is a long wait. -Request records from her PCPs office as she cannot recall all of her past medication trials. -Involve the patient in groups and therapy here, work on healthy coping skills, and the discharge safety plan. -Family meeting with boyfriend scheduled for tomorrow. (2) Anxiety -Start medications as above, and offer Vistaril 25 mg as needed for anxiety while here. (3) Obesity Encourage healthy diet, exercise, and weight loss. (4) Sexually active test was done on admission, so we'll order that today. Patient advised that oral contraceptives are nonformulary, and that her boyfriend can bring hers in. CPT Code Initial Hospital Care: 79103 Problem Qualifiers (1) Depression: Depression Type: major depressive disorder Major depression recurrence: recurrent Active/Remission status: currently active Major depression episode severity: severe Psychotic features: without psychotic features Qualified Codes: F33.2 - Major depressive disorder, recurrent severe without psychotic features (2) Obesity: Obesity classification: adult class 3 (BMI >= 40)
[2017-03-08] MEDS ORDERED: LORAZEPAM 0.5 MG TAB PO PRN (12:45)
[2017-03-08 16:54] LABS: PREG INTERNAL NEGATIVE QC NEG CLEAR BACKGROUND; PREG INTERNAL POSITIVE QC POS CONTROL LINE
[2017-03-08] MEDS ORDERED: NURSING VERBAL MED ORDER ONE ×3 (19:00→19:30)
[2017-03-08] MEDS ORDERED: DIPHENOXYLATE/ATROPINE 2.5/0.025MG TAB PO PRN (19:45)
[2017-03-08 19:50] LABS: PREG INTERNAL NEGATIVE QC NEG CLEAR BACKGROUND; PREG INTERNAL POSITIVE QC POS CONTROL LINE
[2017-03-09 06:49] VITALS: BP 126/85; PULSE 93; PULSE 97; TEMP 36.9
[2017-03-09] MEDS ORDERED: DULOXETINE HCL 20 MG CAP PO SCH (09:00)
--- NOTE | 2017-03-09 11:30 | Psychiatric Progress Notes ---
Progress Note Date of Service Mar 09, 2017. Interval History 21 y/o SWF with depression and anxiety who presented requesting voluntary admission for worsening mood and anxiety and inability to function, having missed a week of work due to severity of symptoms. She has not been successful in setting up outpatient care and is on a wait list at [facility] as she missed appointments. Chief Complaint "Excited, but scared.". Subjective Patient was seen & assessed interval progress reviewed with Treatment Team. Patient found to have positive test, and when informed said that she was not surprised. She says that knowing now that she is helps her to understand her emotionality lately, going from happy to tearful. She is happy about the , and her boyfriend has been informed. She has a lot of questions about meds and supplements which we discuss. We review the risk for neural tube defects with lamictal and she would like to stop this. We discuss Cymbalta including risks for serotonin syndrome and withdrawal . She would like to remain on the Cymbalta for her anxiety. She is asking appropriate questions about vits and folic acid, saying that she is always researching things on the internet, and is anxious to be able to get home and do so. She is thinking about discharge and has submitted her 72 hr notice, saying that she was never suicidal and being here with those who are, is not what she needs. She explains that she is on a 90 day wait list to get treatment at [facility] because they scheduled her for her follow up appts without her knowledge, and did not notify her, so she missed an appt. She is willing for OP psych treatment. She continues to deny SI/HI, and has never shown evidence of thought disorder. Review of Systems Constitutional: No fever, No chills, No sweats, No weight loss, No weakness, No fatigue, No problem reported ENT: No hearing loss, No unusual epistaxis, No nasal symptoms, No sore throat, No tinnitus, No dental problems, No trouble swallowing, No problem reported Respiratory: No cough, No sputum, No wheezing, No shortness of breath, No dyspnea on exertion, No dyspnea at rest, No hemoptysis, No problem reported Cardiovascular: No chest pain, No orthopnea, No PND, No edema, No claudication , No palpitations, No problem reported Abdomen: No pain, No nausea, No vomiting, No diarrhea, No constipation, No GI bleeding, No problem reported Musculoskeletal: No joint pain, No muscle pain, No swelling, No calf pain, No problem reported Neurologic: No memory loss, No paralysis, No weakness, No numbness/tingling, No vertigo, No balance problems, No problem reported Psychiatric: + problem reported ("excited but scared") Integumentary: No rash, No itch, No new/changing skin lesions, No color change , No bleeding, No problem reported Sleep Information Total Hours of Sleep: 7.50 Meal Information Percent of Breakfast Consumed: 100 Percent of Lunch Consumed: 100 Percent of Dinner Consumed: 80 Mental Status Exam During interview pt is: alert and oriented, cooperative Appearance: appropriately dressed, appropriately groomed, other (obese) Eye contact is: good Motor behavior is: steady gait & station, no abnormal motor movements Speech: normal in rate, rhythm & volume Affect: euthymic Mood is: other ("excited but scared") Thought process: goal directed Thought content: reality based without delusions Suicidal thought are: denied Homicidal thoughts are: denied Hallucinations: denies auditory, denies visual Cognition: memory grossly intact, attention grossly intact, language grossly intact Intelligence estimated to be: average Insight: fair Judgement: fair Impression The patient was discovered to be , quantitative pending, and now sees her emotional instability in that context. We have reviewed meds and she is chosing to stay on Cymbalta but stop lamictal. I will order a vit and folic acid. Once the quantitative has returned, we will make an appt with her weigher and grader. 72 hr notice 03/11 but will continue to work toward a safety plan and aftercare arrangements. Plan (1) Depression -Patient reports long-standing depression with mild mood swings, not consistent with bipolar, but may benefit from a mood stabilizer, which she has not tried in the past. She's had limited success with numerous antidepressant trials, so we discussed the different mood stabilizers, including lithium and lamotrigine, and she ultimately agreed to a trial of lamotrigine. We discussed common side effects, including Meyer-Keon syndrome, and what to expect from the medication if it is working. She was provided with an Up To Date patient handout on the medication, and will start 25 mg daily stay. We also discussed antidepressants, as she has not tried fluoxetine or duloxetine, we reviewed these in detail. She ultimately opted for a trial of duloxetine, as she does not feel she's had good responses to SSRIs in the past. We reviewed the risks, benefits, and side effects, and she was provided with an Up To Date patient handout on the medication. We'll start 20 mg daily, and titrate as tolerated. -Consider a trial of lithium in the future for treatment resistant depression if these medications are ineffective. -Discussed the importance of staying in treatment with psychiatric provider and therapist long-term, given the long-term nature of her symptoms, and treatment resistance with multiple failed medication trials. -Referred for case management, and explore options for outpatient mental health services locally (perhaps [facility] would make an exception in see her sooner, or could refer her to another local provider). She may need a med management appointment with her PCP in the interim if there is a long wait. -Request records from her PCPs office as she cannot recall all of her past medication trials. -Involve the patient in groups and therapy here, work on healthy coping skills, and the discharge safety plan. -Family meeting with boyfriend scheduled for tomorrow. 02/28 - Is , quantitative pending - DC Lamictal - patient opting to remain on Cymbalta 20 mg. for anxiety - Will order vit and folic acid (2) Anxiety -Start medications as above, and offer Vistaril 25 mg as needed for anxiety while here. (3) Obesity Encourage healthy diet, exercise, and weight loss. (4) Sexually active test was done on admission, so we'll order that today. Patient advised that oral contraceptives are nonformulary, and that her boyfriend can bring hers in. 03/09 - urine preg positive, quantitative pending - Folic acid 1 mg. daily - vit daily - Patient opting to remain on Cymbalta 20 mg. for anxiety but stop lamictal. Discharge / Aftercare Planning Primary Care Physician: Name: Chidi [facility] Therapist: Name: none Batch Mixer: Name: None Visit Code E&M Code: 07904 Inventory Assets Strengths: Stable housing, supportive boyfriend, willing for treatment Risk Factors Assessment : Yes /single/: No Higher / Fall in social status: No Health problems: No Mental Health Diagnoses: Yes Substance use disorders: No Previous attempt: No Family history of suicide: No Previous psychiatric stay: No Hopelessness: No Smoker: No Protective Factors Assessment Anglican beliefs: No : No Responsible for young children: No Employed: Yes Stable relationships: Yes Supportive family: Yes Good rapport with provider: No Data Vital Signs Last 24 Hrs: Date Time Temp Pulse Resp B/P (MAP) Pulse Ox O2 Delivery O2 Flow Rate FiO2 03/09/17 06:49 36.9 97 16 126/85 93 126/85 Meds Administered Last 24 Hrs: Meds Administered (Past 24Hrs) Medications (Trade) Dose Ordered Sig/Martin Route Start Time Stop Time Status Last Admin Dose Admin Acetaminophen (Tylenol Tab) 650 mg Q4H PRN PO 03/07/17 22:00 04/06/17 21:59 03/09/17 10:39 650 MG Hydroxyzine HCl (Vistaril Tab) 50 mg HSZ PRN PO 03/07/17 22:00 04/06/17 21:59 Future Hold 03/08/17 00:04 50 MG Lamotrigine (Lamictal Tab) 25 mg 1240 ONCE PO 03/08/17 12:40 03/08/17 12:45 DC 03/08/17 13:00 25 MG Duloxetine HCl (Cymbalta Cap) 20 mg 1240 ONCE PO 03/08/17 12:40 03/08/17 12:45 DC 03/08/17 12:59 20 MG Lorazepam (Ativan Tab) 0.5 mg DAILY PRN PO 03/08/17 12:45 04/07/17 12:44 Future Hold 03/08/17 18:35 0.5 MG Diphenoxylate HCl/ Atropine (Lomotil Tab) 1-2 TABLETS QID PRN PO 03/08/17 19:45 04/07/17 19:44 03/08/17 21:42 1 TAB Lab Results Last 24 Hrs: Last 24 Hours Test 03/08/17 15:40 03/08/17 19:16 Urine Test POS Human Chorionic Gonadotropin, Qual POS Problem Qualifiers (1) Depression: Depression Type: major depressive disorder Major depression recurrence: recurrent Active/Remission status: currently active Major depression episode severity: severe Psychotic features: without psychotic features Qualified Codes: F33.2 - Major depressive disorder, recurrent severe without psychotic features (2) Obesity: Obesity classification: adult class 3 (BMI >= 40)
[2017-03-09] MEDS ORDERED: PRENATAL VITAMIN TAB PO ONE (12:00)
[2017-03-09] MEDS ORDERED: DULOXETINE HCL 20 MG CAP PO ONE (12:00)
[2017-03-10 06:50] VITALS: BP 117/83; PULSE 92; PULSE 96; TEMP 36.8
[2017-03-10] MEDS ORDERED: PRENATAL VITAMIN TAB PO SCH (09:00)
[2017-03-10] MEDS ORDERED: CYM20 PO (09:14)
[2017-03-10] MEDS ORDERED: PRENTAB26 PO (09:14)
[2017-03-10] MEDS ORDERED: FLV1 PO (09:14)
--- NOTE | 2017-03-10 09:25 | Discharge Instructions ---
Discharge Information Report Includes Report will include the: Discharge Instructions & Summary Admission Admission Date / Time: Mar 07, 2017 at 21:44 Reason for Admission: Major Depression Discharge Discharge Diagnosis / Problem: Depression and anxiety Condition at Discharge: Good Discharge Goals Goal(s): Decrease discomfort, Improve disease control, Prevent Disease Progression Activity Recommendations Activity Limitations: resume your previous activity . Instructions / Follow-Up Instructions / Follow-Up . SPECIAL CARE INSTRUCTIONS: 1. Follow through with your scheduled aftercare appointments. If unable to keep an appointment, please call to reschedule. 2. Take your medication only as prescribed. Medication should not be changed or stopped without the approval of your doctor. In the event of worsening symptoms or concerns about side effects, contact your doctor immediately. 3. Utilize new healthy coping skills, anger management skills, and stress management skills learned during your hospitalization. Journal feelings and process them with a support person. Identify stressors or situations that may result in relapse, deterioration or inappropriate behaviors and develop a plan to deal with those issues. 4. If your coping skills are ineffective and you are in crisis, contact your outpatient providers for direction. If unable to reach your providers, please call the CAN HELP LINE AT or go to the closest Emergency Room. 5. Avoid alcohol and un-prescribed drugs. 6. You have been provided with the Mental Health Advance Directives Pamphlet for your review. AFTERCARE APPOINTMENTS: * Please call your insurance company prior to your scheduled appointment to confirm your aftercare providers are covered. Take your insurance information to your appointments. . Discharge / Aftercare Planning Primary Care Physician: Name: [facility] Psychiatrist: Name: Dr. Guajardo, [address], [address], [place] Date of Appointment: Apr 13, 2017 Time of Appointment: 100pm Therapist: Name Of Therapist: Brody Morales [place] Date of Appointment: Mar 14, 2017 Time of Appointment: 1230pm Appointment Comments: Please bring photo ID and insurance card Cyber Software Engineer: Name: None Specialist: Name: METALIZING MACHINE OPERATOR [employer] [facility] Date of Appointment: Apr 04, 2017 Time of Appointment: 945am Appointment Notes: Nurse- 04/04, Doctor- April 11 900am . Follow-Up Care Plan for Follow-Up Care: The patient will see psychiatry on Apr 13, and will have an appt with OB on 04/06 Current Hospital Diet Patient's current hospital diet: Regular Diet Discharge Diet Recommended Diet: Regular Diet Procedures Procedures Performed: No Pending Studies Pending Studies at Discharge: No Medical Emergencies . Who to Call and When: Medical Emergencies: For questions or emergencies related to your hospital stay, please contact the Inpatient Behavioral Health Unit at [phone]. A industrial technology teacher is on-call 20/02 for the Behavioral Health Unit for emergencies At any time you feel your situation is an emergency, you may also call 911 immediately. . Non-Emergent Contact Non-Emergency issues call your: Psychiatrist, Therapist Past History Medical & Surgical History: (1) First trimester Advance Directives Existing Advance Directive: No Do You Have an Existing Mental: No Existing Living Will: No Existing Power of Powder Carrier: No Advance Directives Info Given: To Pt/S.O. Advance Directives Reason: Declines as Mental Health Visit. Discharge Summary Admission HPI Per the Admitting provider: Patient reports a history of depression and anxiety since 5th or 6th grade, for which she's been in psychiatric treatment episodically in the past, and most recently managed by her PCP, and has been worsening since for the past 2-3 months, since she stopped taking psych meds. She describes moving frequently, from [place] to [place] then back to [place] before moving to [place]. She moved to [place] in October and says she has had difficulty getting outpatient mental health providers, and although she had an initial intake at [facility], she did not attend follow-up appointments, as she says she was not told about them. She is now unable to schedule with them for 90 days. She is not on psychotropic medications, but has been taking melatonin for sleep, and got a prescription for Ativan 0.5 mg when necessary in [place] [address] Jesus Harrison. She reports low mood, poor energy, decreased appetite, disrupted sleep, daily crying spells, and decreased motivation. Sleep is disturbed by "laying there worrying about things," takes an hour to fall asleep , but sleeps through the night. She denies thoughts of not wanting to be alive or ending her life, is able to enjoy time with others, and is hopeful that things could improve. She also endorses increased anxiety, avoidance, and worrying about lots of things (paying her bills). Reports panic attacks with shakiness, SOB, sweating, and tearfulness, lasting minutes, and occurring 2-3 times a day. She has a prescription for Ativan 0.5mg from her PCP, which she uses twice a week. She has been staying home from work for the past week, lying in bed all day crying, and is fearful of losing her job. She has been getting psych meds from her PCP, [facility], and has tried multiple antidepressants, most recently protriptyline and escitalopram, which she took for a few months, and then tapered off them as they weren't working. She has not followed up with them, saying they have been "too booked." She describes a pattern of having a couple good days where she is "really happy" and feels good , and will abruptly become depressed and anxious without a trigger. She reports more bad days then good days, about 60% bad days. Good periods last hours, and denies decreased need for sleep or increase in goal directed behavior/pleasure seeking. Has never had a manic episode or psychotic symptoms. Denies OCD, PTSD, and eating disorder. Says she decided to come to the ER yesterday because "every day it's just getting worse, and knowing I was on the 90 day wait list just made it worse." Hospital Course (1) Depression -Patient reports long-standing depression with mild mood swings, not consistent with bipolar, but may benefit from a mood stabilizer, which she has not tried in the past. She's had limited success with numerous antidepressant trials, so we discussed the different mood stabilizers, including lithium and lamotrigine, and she ultimately agreed to a trial of lamotrigine. We discussed common side effects, including Meyer-Keon syndrome, and what to expect from the medication if it is working. She was provided with an Up To Date patient handout on the medication, and will start 25 mg daily stay. We also discussed antidepressants, as she has not tried fluoxetine or duloxetine, we reviewed these in detail. She ultimately opted for a trial of duloxetine, as she does not feel she's had good responses to SSRIs in the past. We reviewed the risks, benefits, and side effects, and she was provided with an Up To Date patient handout on the medication. We'll start 20 mg daily, and titrate as tolerated. -Consider a trial of lithium in the future for treatment resistant depression if these medications are ineffective. -Discussed the importance of staying in treatment with psychiatric provider and therapist long-term, given the long-term nature of her symptoms, and treatment resistance with multiple failed medication trials. -Referred for case management, and explore options for outpatient mental health services locally (perhaps [facility] would make an exception in see her sooner, or could refer her to another local provider). She may need a med management appointment with her PCP in the interim if there is a long wait. -Request records from her PCPs office as she cannot recall all of her past medication trials. -Involve the patient in groups and therapy here, work on healthy coping skills, and the discharge safety plan. -Family meeting with boyfriend scheduled for tomorrow. 02/28 - Is , quantitative pending - DC Lamictal - patient opting to remain on Cymbalta 20 mg. for anxiety - Will order vit and folic acid (2) Anxiety -Start medications as above, and offer Vistaril 25 mg as needed for anxiety while here. (3) Obesity Encourage healthy diet, exercise, and weight loss. (4) Sexually active test was done on admission, so we'll order that today. Patient advised that oral contraceptives are nonformulary, and that her boyfriend can bring hers in. 03/09 - urine preg positive, quantitative pending - Folic acid 1 mg. daily - vit daily - Patient opting to remain on Cymbalta 20 mg. for anxiety but stop lamictal. Risk Factors Assessment : Yes /single/: No Higher / Fall in social status: No Health problems: No Mental Health Diagnoses: Yes Substance use disorders: No Previous attempt: No Family history of suicide: No Previous psychiatric stay: No Hopelessness: No Smoker: No Protective Factors Assessment Bahai beliefs: No : No Responsible for young children: No Employed: Yes Stable relationships: Yes Supportive family: Yes Good rapport with provider: No Day of Discharge Assessment COURSE OF HOSPITALIZATION: The patient was on our unit for 3 days. Upon admission, urine test was positive, quantitative hCG reveals she is one to 2 weeks . The patient received this information well, suspecting that she was and feeling happy about it. Her boyfriend was also informed. She had been experiencing emotional swings from happy to crying and now thinks that some of that may have been in the context of being . She was happy about the , looking forward to researching information when she returns home. Medications were extensively reviewed including risks benefits during . We discontinued Lamictal but she opted to continues Cymbalta 20 mg to address her anxiety. Again risks for withdrawals and serotonin syndrome were reviewed. The patient was given a choice as to how to proceed and she opted to continue the medications and had no concerns or questions. She involved her family and her boyfriend in her treatment. At no point was she suicidal. She did submit a 72 hour notice to withdraw from treatment and in view of the fact she met no criteria for involuntary treatment, we will proceed with discharge today. DAY OF DISCHARGE ASSESSMENT: Today the patient is requesting discharge. She says her mood is happy and mildly anxious about the which she sees as a normal reaction. She is specifically informed not to use benzodiazepines after discharge as this is contraindicated in , as she has a prescription for Ativan at home. She can restate her follow-up appointments, again restates her choice to continue on Cymbalta. Today she is casually and appropriately dressed and groomed. Gait and station are within normal limits. Eye contact is good. Affect is smiling. Speech is of normal rate volume and tone. Thoughts are organized, goal directed, and without evidence of thought disorder. Recent and remote memory are intact per conversation. Intelligence is estimated to be average. Insight and judgment are improved over admission. Laboratory Test 03/07/17 19:20 03/07/17 19:55 03/07/17 19:57 03/08/17 15:40 Urine Color YELLOW Urine Appearance CLEAR Urine pH 6.0 Urine Specific [place] 1.025 Urine Protein NEG Urine Glucose (UA) NEG Urine Ketones NEG Urine Occult Blood NEG Urine Nitrite NEG Urine Bilirubin NEG Urine Urobilinogen NEG Urine Leukocyte Esterase NEG Urine Opiates Screen NEG Urine Methadone, Qualitative NEG Urine Barbiturates NEG Urine Phencyclidine (PCP) Level NEG Ur Amphetamine/Methamphetamine NEG MDMA (Ecstasy) Screen NEG Urine Benzodiazepines Screen NEG Urine Cocaine Metabolite NEG Urine Marijuana (THC) NEG White Blood Count 10.59 Red Blood Count 4.38 Hemoglobin 13.4 Hematocrit 39.1 Mean Corpuscular Volume 89.3 Mean Corpuscular Hemoglobin 30.6 Mean Corpuscular Hemoglobin Concent 34.3 Platelet Count 272 Mean Platelet Volume 9.9 Neutrophils (%) (Auto) 71.8 Lymphocytes (%) (Auto) 19.7 Monocytes (%) (Auto) 7.0 Eosinophils (%) (Auto) 0.8 Basophils (%) (Auto) 0.4 Neutrophils # (Auto) 7.61 Lymphocytes # (Auto) 2.09 Monocytes # (Auto) 0.74 Eosinophils # (Auto) 0.08 Basophils # (Auto) 0.04 RDW Standard Deviation 40.1 RDW Coefficient of Variation 12.4 Immature Granulocyte % (Auto) 0.3 Immature Granulocyte # (Auto) 0.03 Sodium Level 139 Potassium Level 3.7 Chloride Level 106 Carbon Dioxide Level 26 Anion Gap 7.0 Blood Urea Nitrogen 16 Creatinine 0.85 Est Creatinine Clear Calc Drug Dose 142.0 Estimated GFR () 111.9 Estimated GFR (Non- 96.6 BUN/Creatinine Ratio 18.4 Random Glucose 102 Calcium Level 8.7 Total Bilirubin 0.2 Direct Bilirubin < 0.1 Aspartate Amino Transferase (AST) 11 Alanine Aminotransferase (ALT) 22 Alkaline Phosphatase 83 Total Protein 7.8 Albumin 3.5 Globulin 4.3 Albumin/Globulin Ratio 0.8 Thyroid Stimulating Hormone (TSH) 2.140 Ethyl Alcohol mg/dL < 3.0 POC Glucose 102 Urine Test POS Test 03/08/17 19:16 Human Chorionic Gonadotropin, Qual POS Human Chorionic Gonadotropin, Quant 90 Total Time Total Time Spent (min): Greater than 30 minutes Total Time Included: examination of the patient, discharge planning, medication reconciliation, communication with other providers Tobacco Cessation at Discharge Smoking Status: Never Smoker FDA approved Prescription: non-smoker Problem Qualifiers (1) Depression: Depression Type: major depressive disorder Major depression recurrence: recurrent Active/Remission status: remission status unspecified Qualified Codes: F33.9 - Major depressive disorder, recurrent, unspecified (2) Obesity: Obesity classification: adult class 3 (BMI >= 40)
== END 2017-03-10 10:02 | disposition home or self-care (01) | DRG 781 ==
LOC: C.EDB 18:56 → C.MHU 21:44
PROVIDERS: ADMIT Psychiatry & Neurology Psychiatry; ATTEND Psychiatry & Neurology Psychiatry
DX: O99.341 Other mental disorders complicating pregnancy, first trimester (principal); F33.9 Major depressive disorder, recurrent, unspecified; Z68.42 Body mass index [BMI] 45.0-49.9, adult; F41.9 Anxiety disorder, unspecified; O99.211 Obesity complicating pregnancy, first trimester; E66.01 Morbid (severe) obesity due to excess calories; Z79.899 Other long term (current) drug therapy; Z3A.00 Weeks of gestation of pregnancy not specified

== ENCOUNTER → 2017-03-27 | Outpatient (CLI) | payer OTHER ==
[~2017-03-27] MED LIST changes: +CYM20 PO; -ESCI10TA17 PO; +FLV1 PO; -LORA-741 PO; +PRENTAB26 PO; -ZFRODT4HP SL
== END | disposition home or self-care (01) ==
LOC: C.LAB1850 12:55
PROVIDERS: ATTEND Obstetrics & Gynecology
DX: Z34.01 Encounter for supervision of normal first pregnancy, first trimester (principal)

== ENCOUNTER → 2017-03-27 | Outpatient (CLI) | payer OTHER | END | disposition home or self-care (01) | LOC: C.PAPS 16:42 | PROVIDERS: ATTEND Obstetrics & Gynecology | DX: Z34.01 Encounter for supervision of normal first pregnancy, first trimester (principal) ==

== ENCOUNTER → 2017-03-27 | Outpatient (CLI) | payer OTHER ==
[2017-03-27 14:38] LABS: URINE APPEARANCE CLEAR (CLEAR); URINE BILIRUBIN NEG (NEG); URINE COLOR YELLOW; URINE EPITHELIAL CELL AUTO >30 /lpf (0-5); URINE NITRITE NEG (NEG); URINE PH 7.5 (4.5-7.5); URINE SPECIFIC GRAVITY 1.017 (1.000-1.030); UROBILINOGEN NEG (NEG)
[2017-03-27 14:41] LABS: MANUAL MICROSCOPIC REQUIRED? NO; REVIEW REQ? NO
== END | disposition home or self-care (01) ==
LOC: C.LABSPEC 13:45
PROVIDERS: ATTEND Obstetrics & Gynecology
DX: Z34.01 Encounter for supervision of normal first pregnancy, first trimester (principal)

== ENCOUNTER → 2017-03-27 | Outpatient (CLI) | payer OTHER ==
[2017-03-30 00:34] LABS: CHLAMYDIA TRACH RNA*** NOT DETECTED (NOT DETECTED); GC (NEIS GONORRHOEAE)RNA** NOT DETECTED (NOT DETECTED)
== END | disposition home or self-care (01) ==
LOC: C.LABSPEC 15:54
PROVIDERS: ATTEND Obstetrics & Gynecology
DX: Z34.01 Encounter for supervision of normal first pregnancy, first trimester (principal)

== ENCOUNTER → 2017-08-30 | Outpatient (CLI) | payer OTHER | END | disposition home or self-care (01) | LOC: C.LABSPEC 13:36 | PROVIDERS: ATTEND Obstetrics & Gynecology | DX: Z34.03 Encounter for supervision of normal first pregnancy, third trimester (principal); Z3A.00 Weeks of gestation of pregnancy not specified ==

== ENCOUNTER → 2017-09-25 | Outpatient (CLI) | payer OTHER | END | disposition home or self-care (01) | LOC: C.LAB1850 08:56 | PROVIDERS: ATTEND Obstetrics & Gynecology | DX: O28.1 Abnormal biochemical finding on antenatal screening of mother (principal); Z3A.00 Weeks of gestation of pregnancy not specified ==

== ENCOUNTER 2017-10-19 19:57 | Outpatient (CLI) | payer OTHER ==
[~2017-10-19] VITALS: Ht 167.6 cm; Wt 144.5 kg
[~2017-10-19 19:57] MED LIST changes: -CYM/30 PO; -RANI150T3 PO
[2017-10-19 22:10] VITALS: Ht 167.6 cm; Wt 144.5 kg
[2017-10-19] MEDS ORDERED: CYM/30 PO (22:10)
[2017-10-19] MEDS ORDERED: RANI150T3 PO (22:10)
== END 2017-10-19 21:30 | disposition home or self-care (01) ==
LOC: C.OPB 19:57 → C.LD 19:57 → C.OPB 21:30
PROVIDERS: ATTEND Obstetrics & Gynecology
DX: O99.89 Other specified diseases and conditions complicating pregnancy, childbirth and the puerperium (principal); R03.0 Elevated blood-pressure reading, without diagnosis of hypertension; R10.11 Right upper quadrant pain; E66.01 Morbid (severe) obesity due to excess calories; O99.213 Obesity complicating pregnancy, third trimester; Z3A.35 35 weeks gestation of pregnancy; Z90.49 Acquired absence of other specified parts of digestive tract

== ENCOUNTER → 2017-10-19 | Outpatient (CLI) | payer OTHER ==
[~2017-10-19] MED LIST changes: +CYM/30 PO; +RANI150T3 PO
[2017-10-19 16:36] LABS: HEMATOCRIT 34.8 % (37-47); HEMOGLOBIN 11.9 g/dL (12.0-16.0); MEAN CELL VOLUME 89.5 fL (80-100); MEAN CORPUSCULAR HEMOGLOBIN 30.6 pg (25-34); MEAN CORPUSCULAR HGB CONC 34.2 g/dl (32-36); MEAN PLATELET VOLUME 10.1 fL (7.4-10.4); PLATELET COUNT 238 K/uL (130-400); RED CELL DISTRIBUTION WIDTH CV 13.2 % (11.5-14.5); RED CELL DISTRIBUTION WIDTH SD 42.7 fL (36.4-46.3)
[2017-10-19 17:07] LABS: ALBUMIN 2.6 gm/dl (3.4-5.0); ALT/SGPT 11 U/L (12-78); AST/SGOT 9 U/L (15-37); BLOOD UREA NITROGEN 7 mg/dl (7-18); CALCIUM 9.4 mg/dl (8.5-10.1); CARBON DIOXIDE 24 mmol/L (21-32); CREATININE 0.62 mg/dl (0.60-1.20); GLUCOSE 100 mg/dl (70-99); POTASSIUM 3.7 mmol/L (3.5-5.1); SODIUM 139 mmol/L (136-145); TOTAL PROTEIN 7.1 gm/dl (6.4-8.2)
[2017-10-19 17:08] LABS: ALKALINE PHOSPHATASE 153 U/L (45-117)
== END | disposition home or self-care (01) ==
LOC: C.LAB1850 15:43
PROVIDERS: ATTEND Obstetrics & Gynecology
DX: O16.9 Unspecified maternal hypertension, unspecified trimester (principal)

== ENCOUNTER → 2017-10-21 | Outpatient (CLI) | payer OTHER ==
[~2017-10-21] MED LIST changes: +CYM/30 PO; -CYM20 PO; +RANI150T3 PO
== END | disposition home or self-care (01) ==
LOC: C.LAB 11:35
PROVIDERS: ATTEND Obstetrics & Gynecology
DX: O16.9 Unspecified maternal hypertension, unspecified trimester (principal); Z3A.00 Weeks of gestation of pregnancy not specified

== ENCOUNTER 2017-10-22 15:35 | Outpatient (CLI) | payer OTHER ==
[~2017-10-22] VITALS: Ht 167.6 cm; Wt 145.0 kg
[2017-10-22 16:17] LABS: BASO % 0.1 %; BASO ABS # 0.01 K/uL (0-0.2); EOS % 0.5 %; EOS ABS # 0.05 K/uL (0-0.5); HEMATOCRIT 33.9 % (37-47); HEMOGLOBIN 11.7 g/dL (12.0-16.0); IG# 0.08 K/uL (0.00-0.02); LYMPH % 16.4 %; LYMPH ABS # 1.66 K/uL (1.2-3.4); MEAN CELL VOLUME 88.5 fL (80-100); MEAN CORPUSCULAR HEMOGLOBIN 30.5 pg (25-34); MEAN PLATELET VOLUME 9.5 fL (7.4-10.4); MONO ABS # 0.81 K/uL (0.11-0.59); NEUT % 74.2 %; NEUT ABS # 7.53 K/uL (1.4-6.5); PLATELET COUNT 219 K/uL (130-400); RED CELL DISTRIBUTION WIDTH CV 13.3 % (11.5-14.5); RED CELL DISTRIBUTION WIDTH SD 42.7 fL (36.4-46.3); WHITE BLOOD COUNT 10.14 K/uL (4.8-10.8)
[2017-10-22 16:35] LABS: INR 0.9 (0.9-1.1); PTT PATIENT 26.9 SECONDS (21.0-31.0)
[2017-10-22 16:40] LABS: ALBUMIN 2.5 gm/dl (3.4-5.0); ALKALINE PHOSPHATASE 140 U/L (45-117); ALT/SGPT 12 U/L (12-78); AST/SGOT 9 U/L (15-37); BLOOD UREA NITROGEN 6 mg/dl (7-18); CALCIUM 8.9 mg/dl (8.5-10.1); CARBON DIOXIDE 23 mmol/L (21-32); CREATININE 0.67 mg/dl (0.60-1.20); GLUCOSE 80 mg/dl (70-99); POTASSIUM 3.8 mmol/L (3.5-5.1); SODIUM 138 mmol/L (136-145); TOTAL PROTEIN 6.9 gm/dl (6.4-8.2)
[2017-10-22] MEDS ORDERED: IV FLUIDS COMPLETED PRN (17:00)
[2017-10-22 17:13] VITALS: Ht 167.6 cm; Wt 145.0 kg
[2017-10-22 17:22] LABS: MEAN CORPUSCULAR HGB CONC 34.5 g/dl (32-36)
== END 2017-10-22 17:03 | disposition home or self-care (01) ==
LOC: C.OPB 15:35 → C.LD 15:36 → C.OPB 17:03
PROVIDERS: ATTEND Obstetrics & Gynecology
DX: O14.03 Mild to moderate pre-eclampsia, third trimester (principal); Z3A.36 36 weeks gestation of pregnancy

== ENCOUNTER → 2017-10-25 | Outpatient (CLI) | payer OTHER ==
[2017-10-25 15:49] LABS: HEMATOCRIT 37.2 % (37-47); HEMOGLOBIN 12.4 g/dL (12.0-16.0); MEAN CELL VOLUME 89.9 fL (80-100); MEAN CORPUSCULAR HGB CONC 33.3 g/dl (32-36); MEAN PLATELET VOLUME 10.4 fL (7.4-10.4); PLATELET COUNT 244 K/uL (130-400); RED CELL DISTRIBUTION WIDTH CV 13.5 % (11.5-14.5); WHITE BLOOD COUNT 11.16 K/uL (4.8-10.8)
[2017-10-25 16:59] LABS: ALBUMIN 2.8 gm/dl (3.4-5.0); TOTAL PROTEIN 7.4 gm/dl (6.4-8.2)
== END | disposition home or self-care (01) ==
LOC: C.LAB1850 14:37
PROVIDERS: ATTEND Obstetrics & Gynecology
DX: O14.00 Mild to moderate pre-eclampsia, unspecified trimester (principal)

== ENCOUNTER 2017-10-27 08:46 | Inpatient (IN) | payer OTHER ==
[~2017-10-27] VITALS: Ht 167.6 cm; Wt 143.2 kg
[2017-10-27] MEDS ORDERED: LACTATED RINGER'S 1000ML 1,000 ML IV PRN (09:28)
[2017-10-27] MEDS ORDERED: LACTATED RINGER'S 1000ML 500 ML IV PRN ×2 (09:28→17:00)
[2017-10-27] MEDS ORDERED: OXYTOCIN 30 UNITS/500ML NSS IV PRN ×2 (09:30→23:45)
[2017-10-27 09:55] LABS: BASO % 0.1 %; BASO ABS # 0.01 K/uL (0-0.2); EOS % 0.3 %; EOS ABS # 0.05 K/uL (0-0.5); HEMATOCRIT 33.2 % (37-47); HEMOGLOBIN 11.6 g/dL (12.0-16.0); IG# 0.07 K/uL (0.00-0.02); LYMPH % 10.5 %; LYMPH ABS # 1.64 K/uL (1.2-3.4); MEAN CELL VOLUME 88.3 fL (80-100); MEAN CORPUSCULAR HEMOGLOBIN 30.9 pg (25-34); MEAN PLATELET VOLUME 9.7 fL (7.4-10.4); MONO % 6.9 %; MONO ABS # 1.08 K/uL (0.11-0.59); NEUT % 81.7 %; PLATELET COUNT 210 K/uL (130-400); RED CELL DISTRIBUTION WIDTH CV 13.4 % (11.5-14.5); RED CELL DISTRIBUTION WIDTH SD 42.6 fL (36.4-46.3); WHITE BLOOD COUNT 15.55 K/uL (4.8-10.8)
[2017-10-27 09:57] LABS: MEAN CORPUSCULAR HGB CONC 34.9 g/dl (32-36)
[2017-10-27 09:58] VITALS: Ht 167.6 cm; Wt 143.2 kg
[2017-10-27 10:05] LABS: INR 0.9 (0.9-1.1)
[2017-10-27] MEDS ORDERED: PENICILLIN G POTASSIUM IV 6 MU in DEXTROSE 5% 250ML 250 ML IV ONE (10:15)
[2017-10-27 10:18] LABS: ALBUMIN 2.6 gm/dl (3.4-5.0); ALT/SGPT 10 U/L (12-78); CREATININE 0.65 mg/dl (0.60-1.20); URIC ACID 4.3 mg/dl (2.6-7.2)
[2017-10-27] MEDS: LACTATED RINGER'S 1000ML 1,000 ML IV SCH ×2 (10:18→17:48)
[2017-10-27 10:21] LABS: ALKALINE PHOSPHATASE 147 U/L (45-117); AST/SGOT 12 U/L (15-37); TOTAL PROTEIN 6.8 gm/dl (6.4-8.2)
[2017-10-27] MEDS ORDERED: BUTORPHANOL TARTRATE 1 MG/ML VIAL IV PRN (14:00)
[2017-10-27] MEDS: PENICILLIN G POTASSIUM IV 3 MU in DEXTROSE 5% 100ML 100 ML IV PRN ×3 (14:02→22:07)
[2017-10-27] MEDS ORDERED: BUTORPHANOL TARTRATE 1 MG/ML VIAL ONE (14:05)
[2017-10-27] MEDS ORDERED: BUPIVACAINE 0.25% 30 ML VIAL ONE ×2 (15:30→21:26)
[2017-10-27] MEDS ORDERED: EpHEDrine SULFATE INJ 50 MG/ML AMP ONE (15:30)
[2017-10-27] MEDS ORDERED: FENTANYL CITRATE INJ 50 MCG/1 ML 2 ML VIAL ONE ×2 (15:31→21:27)
[2017-10-27] MEDS ORDERED: FENTANYL 2MCG/ML ROPIV 1.25MG/ML 100ML BAG EPI ONE (15:31)
[2017-10-27] MEDS ORDERED: DiphenhydrAMINE HCL 50 MG/ML VIAL IV PRN (17:00)
[2017-10-27] MEDS ORDERED: NALOXONE HCL INJ 1 MG in SODIUM CHLORIDE 0.9% 1000ML 1,000 ML IV PRN (17:00)
[2017-10-27] MEDS ORDERED: EpHEDrine SULFATE INJ 50 MG/ML AMP IV PRN (17:00)
[2017-10-27] MEDS ORDERED: NALOXONE HCL INJ 0.4 MG/1 ML VIAL/CARP IV PRN (17:00)
[2017-10-27] MEDS ORDERED: NALBUPHINE HCL INJ 10 MG/ML AMP IV PRN (17:00)
[2017-10-27] MEDS: FENTANYL 2MCG/ML ROPIV 1.25MG/ML 100ML BAG EPI PRN ×2 (19:01→22:23)
[2017-10-27] MEDS ORDERED: HYDROCORTISONE ACETATE 25 MG SUPP PR PRN (23:45)
[2017-10-27] MEDS ORDERED: LANOLIN OINT EXT PRN (23:45)
[2017-10-27] MEDS ORDERED: BENZOCAINE 20% AER SPR 82.5 GM CAN EXT PRN (23:45)
[2017-10-27] MEDS ORDERED: SUPERCREAM 0.870 % 15GM JAR EXT PRN (23:45)
[2017-10-27] MEDS ORDERED: ACETAMINOPHEN/CODEINE 300/30MG TAB PO PRN ×2 (23:45)
[2017-10-27] MEDS ORDERED: ACETAMINOPHEN 325 MG TAB PO PRN (23:45)
[2017-10-27] MEDS ORDERED: IBUPROFEN 600 MG TAB PO PRN (23:45)
--- NOTE | 2017-10-28 00:51 | DELIVERY SUMMARY ---
DATE OF OPERATION: 10/27/2017 FINDINGS: Viable female with Apgars of 6 and 7. Arterial and venous cord gases are pending. Baby delivered spontaneously over a midline second-degree laceration. Cord gases and cord blood samples obtained. Placenta delivered spontaneously with succenturiate lobes x2. Laceration repaired with 4-0 Vicryl. Estimated blood loss 300 mL. LABOR NOTE: The patient is a 22-year-old 1, para 0, with an EDC of 11/17/2017 at 37 weeks gestational age, who was admitted for induction for preeclampsia. The patient had some elevated blood pressures in the third trimester and a 24-hour urine which showed greater than 300 mg of protein. PIH labs kept her in the mild category, and because of the preeclampsia, she had been scheduled for induction on day of admission. On the morning of admission, the patient had spontaneous rupture of membranes but only mild contractions. Laboratory values for the showed blood type of A+, antibody negative, rubella immune, hepatitis B negative. She had a negative cell-free DNA test. She had a normal 1-hour Glucola and a positive third trimester beta strep culture. Upon admission, the patient was grossly ruptured. She was 4 cm dilated, 80% effaced and -2 station. Tracing was category 1. PIH labs were checked again which were within normal limits. Diastolics ranged anywhere from 80-100. Pitocin was started per induction protocol. An intrauterine pressure catheter and scalp electrode were placed during the first stage of labor to better monitor contractions and the heart rate tracing. Pitocin was increased to get 200 [place] units of contractions over a 10-minute time period. The patient became uncomfortable, anesthesia was consulted and an epidural was placed. The patient progressed to full dilatation and began her second stage. She pushed for approximately 30 minutes, delivering a viable female . Cord was clamped and cut, and the baby was taken over to the resuscitation stand. Cord gases and cord blood samples were obtained. The placenta was delivered spontaneously and there were 2 succenturiate lobes. Placenta was sent for pathological evaluation. Inspection of the perineum showed a midline second-degree laceration. This was repaired with a running 4-0 Vicryl suture. Estimated blood loss was 500 mL. Sponge and needle count was correct. I attest to the content of the Intraoperative Record and any orders documented therein. Any exception s are noted below.
--- NOTE | 2017-10-28 01:41 | Anesthesia Procedure Note ---
Anesthesia Epidural Removal Nt Date & Time Oct 28, 2017 at 01:41 Vital Signs Pain Intensity: 7.0 Notes Mental Status: alert / awake / arousable, participated in evaluation Nausea / Vomiting: adequately controlled Pain: adequately controlled Airway Patency, RR, SpO2: stable & adequate BP & HR: stable & adequate Hydration State: stable & adequate Neuraxial Anesthesia: was administered Anesthetic Complications: no major complications apparent, pt satisfied with anesthetic care Epidural: removed without complications, with tip intact
[2017-10-28 02:05] VITALS: BP 131/67; PULSE 146; TEMP 37.7
[2017-10-28 05:45] VITALS: BP 110/73; PULSE 112; TEMP 37.1
[2017-10-28] MEDS ORDERED: NURSING VERBAL MED ORDER ONE ×2 (06:15)
[2017-10-28] MEDS ORDERED: BUPIVACAINE 0.25% 30 ML VIAL INJ ONE (06:30)
[2017-10-28] MEDS ORDERED: FENTANYL CITRATE INJ 50 MCG/1 ML 2 ML VIAL IV ONE (06:30)
[2017-10-28 06:57] LABS: HEMATOCRIT 29.2 % (37-47); HEMOGLOBIN 9.9 g/dL (12.0-16.0)
--- NOTE | 2017-10-28 07:58 | Progress Note ---
Subjective Oct 28, 2017. Subjective conversation w/ patient, physical exam Ambulation: ambulating normally Voiding: no voiding problems Passing Gas: No Diet Tolerance: Regular Diet Lochia: Small Feeding Type: Breast Feeding Pain: cramping pain with breast feeding, well controlled Comment: Seen and assessed at bedside; no acute events overnight Review of Systems Constitutional: No fever, No chills Respiratory: No cough, No shortness of breath Cardiac: No chest pain, No edema Abdomen: No nausea, No vomiting no headaches or calf pain Objective Vital Signs Date Time Temp Pulse Resp B/P (MAP) Pulse Ox O2 Delivery O2 Flow Rate FiO2 10/28/17 05:45 37.1 112 16 110/73 (85) Room Air 10/28/17 02:05 Room Air 10/28/17 02:05 37.7 146 16 131/67 (88) Room Air Physical Exam General Appearance: WELL-APPEARING, NO APPARENT DISTRESS Respiratory/Chest: lungs clear, normal breath sounds Cardiovascular: regular rate, rhythm, no edema, no murmur Abdomen: normal bowel sounds, non tender, soft Fundus: Firm, Non-Tender, Relation to Umbilicus (3 below) Extremities: normal range of motion, non-tender, normal inspection, no pedal edema, no calf tenderness Laboratory Results Last 24 Hours Test 10/27/17 09:39 10/28/17 06:10 White Blood Count 15.55 K/uL Red Blood Count 3.76 M/uL Hemoglobin 11.6 g/dL 9.9 g/dL Hematocrit 33.2 % 29.2 % Mean Corpuscular Volume 88.3 fL Mean Corpuscular Hemoglobin 30.9 pg Mean Corpuscular Hemoglobin Concent 34.9 g/dl Platelet Count 210 K/uL Mean Platelet Volume 9.7 fL Neutrophils (%) (Auto) 81.7 % Lymphocytes (%) (Auto) 10.5 % Monocytes (%) (Auto) 6.9 % Eosinophils (%) (Auto) 0.3 % Basophils (%) (Auto) 0.1 % Neutrophils # (Auto) 12.70 K/uL Lymphocytes # (Auto) 1.64 K/uL Monocytes # (Auto) 1.08 K/uL Eosinophils # (Auto) 0.05 K/uL Basophils # (Auto) 0.01 K/uL RDW Standard Deviation 42.6 fL RDW Coefficient of Variation 13.4 % Immature Granulocyte % (Auto) 0.5 % Immature Granulocyte # (Auto) 0.07 K/uL Prothrombin Time 9.7 SECONDS Prothromb Time International Ratio 0.9 Creatinine 0.65 mg/dl Est Creatinine Clear Calc Drug Dose 195.6 ml/min Estimated GFR () 144.0 Estimated GFR (Non- 124.3 Uric Acid 4.3 mg/dl Total Bilirubin 0.3 mg/dl Direct Bilirubin < 0.1 mg/dl Aspartate Amino Transf (AST/SGOT) 12 U/L Alanine Aminotransferase (ALT/SGPT) 10 U/L Alkaline Phosphatase 147 U/L Total Protein 6.8 gm/dl Albumin 2.6 gm/dl Medications Current Inpatient Medications Medications (Trade) Dose Ordered Sig/Martin Route Start Time Stop Time Status Last Admin Dose Admin Lactated Ringer's 1,000 ml @ 125 mls/hr Q8H IV 10/27/17 09:28 10/29/17 09:27 10/27/17 17:48 125 MLS/HR Lactated Ringer's 500 ml @ 999 mls/hr Q31M PRN IV 10/27/17 09:28 11/26/17 09:27 Butorphanol Tartrate (Stadol Inj) 1 mg Q4 PRN IV 10/27/17 14:00 11/26/17 13:59 Oxytocin (Pitocin IV) 30 units UD PRN IV 10/27/17 23:45 11/26/17 23:44 Benzocaine (Dermoplast Aero Spr) 1 appln PRN PRN EXT 10/27/17 23:45 11/26/17 23:44 10/28/17 06:31 82.5 APPLN Cocaine HCl (Supercream 0.870% Cr) BID PRN EXT 10/27/17 23:45 11/10/17 23:44 Hydrocortisone Acetate (Anusol Hc Supp) 25 mg BID PRN [place] 10/27/17 23:45 11/26/17 23:44 Lanolin (Lanolin Oint) PRN PRN EXT 10/27/17 23:45 11/26/17 23:44 Prenat Multivit/ [place]/Iron/Folic Ac ( Vitamin Tab) 1 tab DAILY PO 10/28/17 08:00 11/27/17 07:59 Ibuprofen (Motrin Tab) 600 mg Q4H PRN PO 10/27/17 23:45 11/26/17 23:44 Acetaminophen (Tylenol Tab) 650 mg Q6H PRN PO 10/27/17 23:45 11/26/17 23:44 10/28/17 02:10 650 MG Acetaminophen/ Codeine Phosphate (Tylenol w/ Codeine #3 Tab) 1 tab Q4H PRN PO 10/27/17 23:45 11/26/17 23:44 Acetaminophen/ Codeine Phosphate (Tylenol w/ Codeine #3 Tab) 2 tab Q4H PRN PO 10/27/17 23:45 11/26/17 23:44 Bisacodyl (Dulcolax Tab) 5 mg 20 PO 10/28/17 20:00 10/28/17 20:01 Docusate Sodium (coLACE CAP) 100 mg BID PO 10/28/17 08:00 11/27/17 07:59 Diphtheria/ Pertussis/Tetanus Vacc (Adacel Inj) 0.5 ml ONCE ONCE IM. 10/29/17 09:00 10/29/17 09:01 Ferrous Sulfate (Feosol Tab) 325 mg DAILY PO 10/28/17 08:00 11/27/17 07:59 Duloxetine HCl (Cymbalta Cap) 30 mg DAILY PO 10/28/17 08:00 11/27/17 07:59 Assessment and Plan Problem List Medical Problems: (1) Acute anxiety Status: Acute (2) Constipation Status: Acute (3) Depression Status: Acute (4) Dizziness Status: Acute Post- Day#: 1 Continue Routine Care: 22 yo PPD 1 s/p pt doing well Continue routine care: encourage ambulation, breast feeding and first time mom education on breast feeding Pain control with rx prn Pt was mild pre-eclamptic prior to delivery; pressures have been WNL since delivery. Continue to monitor Resident Physician Supervision Note: I interviewed and examined the patient. Discussed with Dr. Payne and agree with findings and plan as documented in the note. Any exceptions or clarifications are listed here: Baby with some initial tachycardia, gasses WNL, Documented By: Tano Mascorro Resident Tracking Resident Involvement: Resident Care Provided Care Provided: OB Delivery
[2017-10-28 08:30] VITALS: BP 116/75; PULSE 99; TEMP 36.6
[2017-10-28] MEDS: FERROUS SULFATE 325 MG TAB PO SCH (08:31)
[2017-10-28] MEDS: DOCUSATE SODIUM 100 MG CAP PO SCH ×2 (08:31→21:00)
[2017-10-28] MEDS: PRENATAL VITAMIN TAB PO SCH (08:32)
[2017-10-28] MEDS: DULOXETINE (CYMBALTA) 30 MG CAP PO SCH (08:32)
[2017-10-28 12:22] VITALS: BP 110/73; PULSE 99; TEMP 36.5
--- NOTE | 2017-10-28 14:45 | Discharge Instructions ---
Discharge Instructions Date of Service Oct 28, 2017. Admission Reason for Admission: Induction Discharge Discharge Diagnosis / Problem: normal delivery-gestational HTN Discharge Goals Goal(s): Routine recovery after delivery Medications Continue Dispensed Medications: supercream, dermaplast, tucks, lansinoh Activity Recommendations Activity Limitations: per Instructions/Follow-up section . Instructions / Follow-Up Instructions / Follow-Up ACTIVITY RECOMMENDATIONS: * Gradual return to full activity over the next 2-3 weeks. * No lifting - nothing heavier than baby over the next 2-3 weeks. * Do not engage in vigorous exercise, sexual activity or sports until cleared by your physician. * Do not drive or operate any motorized equipment until cleared by your physician. * You may shower/bathe daily. MEDICATIONS: For discomfort or pain, you may use Acetaminophen (Tylenol), Ibuprofen (Advil), or Naproxen (Aleve) following the package directions. For constipation you may use Colace following the package directions. BREAST CARE: If you are not breast feeding: * Wear a supportive bra 24 hours a day for one to two weeks. * Avoid stimulating your breasts and nipples as much as possible during the first few weeks after delivery. * When taking a shower, have the warm water hit your back, not breasts. * When your breasts feel full, apply ice packs. Usually three to four times a day helps ease the discomfort. * Take a mild pain medication (Tylenol / Motrin) when you are uncomfortable. If breast feeding: * Use breast milk to lubricate nipples. Lansinoh cream may be used for sore nipples. You do not need to remove cream prior to breast feeding. If using a different brand of cream, check the label for directions regarding removal of cream prior to nursing. * Wear a supportive bra. * If having problems with breasts or breast feeding, call a security sales consultant or your health care provider. EPISIOTOMY CARE: After delivery, if you have an episiotomy (stitches), the following steps will ease discomfort and aid healing. * For the first 24 hours after delivery, place ice packs next to your episiotomy to help reduce swelling. * After the first 24 hour-period, sitz baths, either portable or in the tub, are suggested. A shower with a shower arm sprayed over the episiotomy may be comforting. * Aubree care should be done after each voiding and bowel movement. Squirt warm water from a plastic bottle over the perineum (region of the body between the anus and urinary opening) and pat dry. * Use Dermoplast to ease discomfort. Shake container. [place] directly over the episiotomy. Place a Tucks on a clean sanitary pad next to your episiotomy. SPECIAL CARE INSTRUCTIONS: When you are discharged from the hospital, it is important for you to follow the instructions listed below: * During the first week at home, you should be able to care for yourself and your baby. In addition, the usual light household activities are encouraged. * Limit your activities to the way you feel. Do not try to clean the house or move furniture. Be sensible. * If you actively engage in sports and have done so up until the time of your delivery, you may resume these activities as soon as you feel able. This may take up to one month or even longer. Use good judgment. * Continue to take your vitamins for at least six weeks after the of your baby. * Your diet need not be limited unless you were on a special diet before your delivery. Breast-feeding mothers need around 2500 calories per day and at least 64-80 ounces of fluid per day (8 to 10 glasses). * You should eat foods from the four major food groups. Crash diets or fad diets are to be avoided. Eating lean meats, fresh fruits and vegetables, low-fat dairy products, high fiber foods and a regular exercise program, will help you get back to your pre- weight without putting your health at risk. * Constipation is sometimes a problem after delivery. Take a mild laxative as needed. If breast feeding, Milk of Magnesia is acceptable to use. You may use a suppository or Fleets enema if no episiotomy. * A daily shower or tub bath is suggested. Be sure to thoroughly and gently dry the perineum. * A bloody vaginal discharge will usually continue until around four weeks post . A small amount of bleeding may continue for as long as six weeks. Vaginal discharge changes from the bright red bleeding after delivery to pink then brownish and finally yellowish-pink before becoming white and disappearing. * Bleeding may increase with activity. Your first period may come in 4-8 weeks. If you are breast feeding, your period may be delayed even longer. * [place] (sex) can begin whenever both you and your partner feel comfortable and do not have any form of genital infection. It is recommended that you wait at least six weeks for internal and external healing to occur. If you have questions, please talk to your health care practitioner. A condom should be used to prevent infection and . * Foreplay, gentle intercourse and lubrication is very important the first several times to prevent pain. A water-based lubricant such as K-Y jelly or Astroglide may be used. * If you have RH negative blood and your baby is RH positive, you will receive RHOGAM by injection prior to discharge. The nurse will give you a card to keep with you that has the date and place that you received RHOGAM after delivery. * During your care, you had a Rubella screen done to check for the presence of rubella antibodies in your blood. If your test was negative, you will receive a Rubella vaccine prior to discharge. This vaccine may cause a fever, soreness at the injection site and flu-like symptoms. If these symptoms persist, notify your health care practitioner. is not advised for one month after a Rubella vaccine. * Verbalizes understanding of car seat law as reviewed with patient nursing. * Car Seat hand-out given and reviewed with patient by nursing. * Shaken baby information reviewed with patient by nursing. Call you doctor if: * Heavy bleeding (saturating several pads an hour) or passing clots the size of your fist. * A fever >101 degrees F (38.3 degrees C) on two occasions four hours apart and /or chills. * Unusual pain in the pelvic or vaginal areas. * "Baby Blues" lasting longer than two weeks. If you have any questions or concerns, call your health care practitioner at . FOLLOW UP VISIT: * Please call the office at to schedule a 6 week examination. It is important you keep this appointment. It is important for you to make arrangements for either yearly or twice yearly check-ups thereafter. Current Hospital Diet Patient's current hospital diet: Regular OB Diet Discharge Diet Recommended Diet: Regular OB Diet Pending Studies Studies pending at discharge: no Medical Emergencies . Who to Call and When: Medical Emergencies: If at any time you feel your situation is an emergency, please call [phone] immediately. . Non-Emergent Contact Non-Emergency issues call your: Parts Room Clerk . . "Provider Documentation" section prepared by Lluvia Terrell .
[2017-10-28 15:50] VITALS: BP 125/86; PULSE 103; TEMP 36.7
[2017-10-28] MEDS ORDERED: BISACODYL 5 MG TABEC PO SCH (20:00)
[2017-10-28 20:30] VITALS: BP 137/87; PULSE 112; TEMP 36.8
[2017-10-29 00:53] VITALS: BP 146/78; PULSE 128; TEMP 36.5
[2017-10-29] MEDS: FERROUS SULFATE 325 MG TAB PO SCH (08:08)
[2017-10-29] MEDS: DOCUSATE SODIUM 100 MG CAP PO SCH (08:08)
[2017-10-29] MEDS: DULOXETINE (CYMBALTA) 30 MG CAP PO SCH (08:08)
[2017-10-29] MEDS: PRENATAL VITAMIN TAB PO SCH (08:08)
[2017-10-29 08:15] VITALS: BP 115/81; PULSE 102; TEMP 36.5
--- NOTE | 2017-10-29 08:16 | Progress Note ---
Subjective Oct 29, 2017. Subjective conversation w/ patient, physical exam Ambulation: ambulating normally Voiding: no voiding problems Passing Gas: Yes Diet Tolerance: Regular Diet Lochia: Small Feeding Type: Breast Feeding Review of Systems Constitutional: No fever, No chills, No sweats, No weight loss, No weakness, No fatigue, No problem reported Abdomen: No pain, No nausea, No vomiting, No diarrhea, No constipation, No GI bleeding, No problem reported Female : No see HPI, No dysuria, No urinary frequency, No hematuria, No incontinence, No abnormal vaginal bleeding, No vaginal discharge, No problem reported Objective Vital Signs Date Time Temp Pulse Resp B/P (MAP) Pulse Ox O2 Delivery O2 Flow Rate FiO2 10/29/17 01:03 Room Air 10/29/17 00:53 36.5 128 20 146/78 (100) Room Air 10/28/17 20:30 36.8 112 20 137/87 (104) Room Air 10/28/17 15:50 36.7 103 20 125/86 (99) 10/28/17 12:22 36.5 99 20 110/73 (85) 10/28/17 08:30 36.6 99 20 116/75 (89) Physical Exam General Appearance: WELL-APPEARING, NO APPARENT DISTRESS Abdomen: non tender, soft Fundus: Firm, Non-Tender, Relation to Umbilicus (2 below U) Extremities: no calf tenderness Assessment and Plan Problem List Medical Problems: (1) Acute anxiety Status: Acute (2) Constipation Status: Acute (3) Depression Status: Acute (4) Dizziness Status: Acute Post- Day#: 2 Continue Routine Care: satisfactory course. Discharge to home follow up in 2 weeks for BP check.
[2017-10-29] MEDS ORDERED: DIPHTHERIA/TETANUS/PERTUSSIS 0.5 ML SYR/VIAL IM. ONE (09:00)
== END 2017-10-29 12:35 | disposition home or self-care (01) | DRG 775 ==
LOC: C.LD 08:46 → C.OBG 10-28 01:57
PROVIDERS: ADMIT Obstetrics & Gynecology; ATTEND Obstetrics & Gynecology
PROC: 0KQM0ZZ Repair Perineum Muscle, Open Approach (ICD-10-PCS; principal; 2017-10-27)
PROC: 10E0XZZ Delivery of Products of Conception, External Approach (ICD-10-PCS; principal; 2017-10-27)
DX: O14.04 Mild to moderate pre-eclampsia, complicating childbirth (principal); O70.1 Second degree perineal laceration during delivery; O99.824 Streptococcus B carrier state complicating childbirth; O99.62 Diseases of the digestive system complicating childbirth; O99.344 Other mental disorders complicating childbirth; F41.9 Anxiety disorder, unspecified; K59.00 Constipation, unspecified; Z37.0 Single live birth; Z3A.37 37 weeks gestation of pregnancy

== ENCOUNTER → 2017-11-03 | Outpatient (CLI) | payer OTHER ==
[~2017-11-03] MED LIST changes: -FLV1 PO
[2017-11-03 12:24] LABS: HEMATOCRIT 32.2 % (37-47); HEMOGLOBIN 10.8 g/dL (12.0-16.0); MEAN CELL VOLUME 90.2 fL (80-100); MEAN CORPUSCULAR HEMOGLOBIN 30.3 pg (25-34); MEAN CORPUSCULAR HGB CONC 33.5 g/dl (32-36); MEAN PLATELET VOLUME 9.1 fL (7.4-10.4); PLATELET COUNT 338 K/uL (130-400); RED CELL DISTRIBUTION WIDTH CV 13.3 % (11.5-14.5); RED CELL DISTRIBUTION WIDTH SD 43.8 fL (36.4-46.3); WHITE BLOOD COUNT 12.35 K/uL (4.8-10.8)
[2017-11-03 16:06] LABS: ALT/SGPT 26 U/L (12-78); BLOOD UREA NITROGEN 9 mg/dl (7-18); CALCIUM 8.7 mg/dl (8.5-10.1); CARBON DIOXIDE 25 mmol/L (21-32); CREATININE 0.89 mg/dl (0.60-1.20); GLUCOSE 89 mg/dl (70-99); POTASSIUM 3.5 mmol/L (3.5-5.1); SODIUM 138 mmol/L (136-145)
[2017-11-03 16:09] LABS: ALKALINE PHOSPHATASE 126 U/L (45-117); AST/SGOT 20 U/L (15-37); TOTAL PROTEIN 7.3 gm/dl (6.4-8.2)
== END | disposition home or self-care (01) ==
LOC: C.LAB1850 10:41
PROVIDERS: ATTEND Obstetrics & Gynecology
DX: O14.00 Mild to moderate pre-eclampsia, unspecified trimester (principal)

== ENCOUNTER 2020-12-21 15:07 | Observation (INO) ==
[2020-12-21 15:40] LABS: Basophils # (auto) 0.02 K/uL (0-0.2); Basophils % (auto) 0.2 %; Eosinophils # (auto) 0.02 K/uL (0-0.5); Eosinophils % (auto) 0.2 %; Hematocrit (blood only) 35.9 % (37-47); Hemoglobin 12.3 g/dL (12.0-16.0); Immature Granulocytes # (auto) 0.04 K/uL (0.00-0.02); Immature Granulocytes % (auto) 0.3 %; Lymphocytes # (auto) 1.54 K/uL (1.2-3.4); Lymphocytes % (auto) 12.8 %; Mean Corpuscular Hemoglobin 30.8 pg (25-34); Mean Corpuscular Hgb Conc 34.3 g/dL (32-36); Mean Platelet Volume 9.5 fL (7.4-10.4); Monocytes # (auto) 0.55 K/uL (0.11-0.59); Monocytes % (auto) 4.6 %; Neutrophils % (auto) 81.9 %; Platelet Count 240 K/uL (130-400); RDW Coefficient of Variation 12.9 % (11.5-14.5); RDW Standard Deviation 42.2 fL (36.4-46.3); Red Blood Count 3.99 M/uL (4.2-5.4); White Blood Count 12.07 K/uL (4.8-10.8)
--- NOTE | 2020-12-21 15:41 | History & Physical Report ---
Date of Service December 21, 2020 Assessment & Plan (1) Chronic hypertension affecting : (2) with 26 completed weeks gestation: Patient with chtn and "episodes" where she has extremely elevated blood pressures at home, taken by a [facility] nurse with a large cuff per her report. Plan to admit for 23 hour obs to see if we can demonstrate an episode and an elevated blood pressure. Plan per Dr. Grimm at [facility] per Dr. Castro's telephone conversation. So far, cbc is wnl. chemistry pending, urine drug tox. I cannot glean anything from her history that would be elevating her blood pressures. Will watch closely. Fetus reassuring for 26 weeks. do not see need for continuous monitoring. Will allow to eat. does not currently seem to be developing preeclampsia. If pressures get into severe range, will need to consider treatment. Dr. Grimm suggested considering Labetolol 3x daily. Currently blood pressures are very good. Interestingly, to TING is here now. She wishes him to be here. Her pressures are a little more elevated since he has arrived. Dr. Grimm recommended Atarax 25mg prn for anxiety and this was ordered. History of Present Illness Chief Complaint: hypertension Primary Care Provider: Sade Starkey Patient is a 25yowf with iup at 26 2/7 weeks with EDC of 03/27/21. Patient is a [place] [facility] [place] 14 [place]. Prior to this she was seen at [facility] and diagnosed as a chronic htn, so we have been treating her as such. She has a blood pressure cuff at home but does not trust it. 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 She is not currently on any meds. Also has hx of pet and delivery at 37 weeks in her first . She required labetolol but was eventually taken off. ON Monday, she ended up presenting to the ED because of not feeling right. She notes for the last month, she has had episodes where she gets dizzy, nauseated, vision changes and WELLS. This is when she knows her blood pressure is elevated. Had elevated blood pressures at home. Was 170s/100s. She came up to labor and delivery where her pressures improved to 150s/80s. Dr. Grimm was consulted at [facility]. In the end, the patient's pressures were improved and she was sent home to collect a 24 hour urine. Of note, the FOB left her late last week and she has noted more anxiety. He is a new fob and has bipolar disorder, he is currently in a manic phase. Patient presented to the office today for f/u. She notes her pressures at home, being taken by a nurse friend , were 170s/100s. As high as 193/117 and lows in the 130s/70s. Her pressure in the office today was 132/90. Dr. Castro kindly called Dr. Grimm again and he requested that she be hospitalized for observation for 24 hours for blood pressure monitoring, get labs, urine tox, question about anything making her pressure increased, atarax prn 25mg for anxiety. Her 24 hour urine was not done and will be started here. she notes she is drinking only water. No caffeine, no smoking, no drug use, no other meds than those noted. She currently denies wells/vision changes/n/v/ ruq pain. Patient has a psych history with PPD and anxiety. She is currently on Pristiq. she has a h/o seizure x 1, not related to labs--A+/ab-/ri/rprnr/hepb-/hiv-/gc/ct-/cf dna neg/declined 16 week gtt/ cf/sma neg in previous Allergies Allergy/AdvReac Type Severity Reaction Status Date / Time sertraline AdvReac Intermediate "makes me Verified 12/21/20 10:29 feel not myself" Home Medications Medication Instructions Recorded Confirmed Type PNV cmb#95-ferrous fumarate-FA 1 tab PO DAILY 07/31/18 12/21/20 History [] hydroxyzine pamoate [Vistaril] 25 mg PO BID PRN #20 cap 12/18/20 12/21/20 Rx desvenlafaxine succinate [Pristiq] 50 mg PO DAILY 12/21/20 12/21/20 History Patient History Medical History (Updated 12/21/20 @ 16:27 by Nesha Daly MD, FACOG) Anxiety Bipolar disorder, current episode hypomanic Chronic hypertension Morbid obesity Surgical History H/O partial thyroidectomy 2-2019; for a nodule Hx of cholecystectomy Family History Mother Diabetes Breast cancer Thyroid cancer Father Hypertension Grandfather (Maternal) Diabetes Family/Other Diabetes Other No pertinent family history Social History Smoking Status: Never smoker Second Hand Exposure: No; Hx Alcohol Use: No Hx Substance Use: No Preferred Language: Hungarian Communication Ability: Effective Lubrication Worker Required: No Beliefs That Will Affect Care: None marital status: Single marital status details: Ismael (30) [phone] Current Living Situation: Alone Current Living Situation Comment: and 3 year old daughter current occupational status: employed current occupation: casemanagement Other Information That Helps Us Care for You: Yes (lost her job; got another job; finance problems) Feels Safe at Home: Yes Safety Concerns: Feels Safe At This Time Assistive Devices: None OB History G1--, 37 weeks, another fob, inducted for pet, 5#13oz. DESIGN TECHNICIAN History noncontributory Physical Exam Constitutional: WD/WN, vitals as above Neck: trachea midline, no thyromegaly Cardiovascular: Extremities: no edema Gastrointestinal (Abdomen): soft, gravid, nt, obese Neurologic: patellar DTR's 2+ bilat, sensation intact Psychiatric: A+Ox3, euthymic affect Genitourinary: cx--deferred toco--none efm--150s with mod variability, c/w 26 week Results & Data ([facility]) Vital Signs (Past 12 Hours) Vital Signs Temp Pulse Resp BP 12/21/20 15:22 37.0 C 117 H 20 130/78 12/21/20 15:20 118 H 136/96 Code Status & VTE Plan VTE Prophylaxis Plan VTE Prophylaxis will be ordered: No Coding Level of Care Code 80624 OBS Care - Level 2 Diagnoses Chronic hypertension affecting O10.919 with 26 completed weeks gestation Z3A.26
[2020-12-21] MEDS ORDERED: hydrOXYzine HCl 25 MG TAB PO PRN (16:37)
[2020-12-21 16:55] LABS: Albumin Level 3.1 gm/dl (3.4-5.0); Calcium 8.4 mg/dl (8.5-10.1); Creatinine Clr Calc Pharmacy 182.1 ml/min; Est GFR (Non-African American) 121.7 ml/min; Potassium 3.3 mmol/L (3.5-5.1)
[2020-12-21 16:57] LABS: Albumin Globulin Ratio 0.7 (0.9-2); Bilirubin,Total 0.5 mg/dl (0.2-1); Globulin 4.3 gm/dl (2.5-4.0); Total Protein 7.4 gm/dl (6.4-8.2)
[2020-12-21 17:00] LABS: Amphetamines+Metham, Urine Neg (Neg); Barbiturates, Urine Neg (Neg); Benzodiazepine, Urine Neg (Neg); Cocaine, Urine Neg (Neg); MDMA (Ecstacy), Urine Neg (Neg); Methadone, Urine Neg (Neg); Opiate, Urine Neg (Neg); Phencyclidine, Urine Neg (Neg)
[2020-12-21] MEDS ORDERED: LACTATED RINGER'S 1,000 ML IV ONE (18:38)
--- NOTE | 2020-12-21 18:43 | Obstetrical Progress Note ---
Date of Service December 21, 2020 Assessment & Plan (1) with 26 completed weeks gestation: (2) Chronic hypertension: Pressures labile, I think related to anxiety/stress. Now back down in a more reasonable range. No s/s . Will continue to monitor closely. Subjective Patient notes a mild WELLS. She is hungry. The FOB arrived and since then, her pressures have been more elevated. She is otherwise asymptomatic. Her labs are all normal. Urine tox is negative. Patient does not like to take the vistaril because it makes her very sleepy. She is currently seeing a counselor actively. Highest systolic 172 and diastolic 108, not together. Now pressure after changing room is 143/93. Physical Exam Constitutional: WD/WN, vitals as above Psychiatric: A+Ox3, euthymic affect Results & Data ([facility]) Vital Signs (Past 12 Hours) Vital Signs Temp Pulse Resp BP 12/21/20 18:25 106 H 143/92 H 12/21/20 17:48 115 H 178/75 H 12/21/20 17:43 115 H 172/82 H 12/21/20 17:38 116 H 164/93 H 12/21/20 17:31 112 H 158/108 H 12/21/20 17:30 112 H 162/97 H 12/21/20 16:33 118 H 143/95 H 12/21/20 16:32 125 H 141/96 H 12/21/20 15:52 37.0 C 117 H 20 130/78 12/21/20 15:22 37.0 C 117 H 20 130/78 12/21/20 15:20 118 H 136/96 PG Care Time/CCT Total # of Minutes Spent Total Time Spent with Patient: Total time spent is greater than 50% in coordination of care (as documented) at patient's floor/unit and/or counseling patient: Coding Level of Care Code None Diagnoses with 26 completed weeks gestation Z3A.26 Chronic hypertension I10
[2020-12-21] MEDS ORDERED: DESVENLAFAXINE SUCCINATE PO SCH (21:00)
[2020-12-21] MEDS ORDERED: ACETAMINOPHEN 325 MG TAB PO ONE (21:14)
--- NOTE | 2020-12-22 00:34 | Obstetrical Progress Note ---
Date of Service December 22, 2020 Assessment & Plan (1) with 26 completed weeks gestation: (2) Chronic hypertension: Pressures have been good since about 5pm. No s/s of concern. Fetus monitored at about 11 and reassuring for 26 weeks. Labs all normal. No evidence of severe elevations of blood pressure. Will check blood pressures q 3 hrs overnight. She is to alert us if she feels poorly. Subjective Patient had mild butcher earlier, got tylenol and resolved. Noted some recent mild nausea and requested christiana noni. Has not felt an episode like she does when her blood pressure is high. Physical Exam Constitutional: WD/WN, vitals as above Psychiatric: A+Ox3, euthymic affect Results & Data ([facility]) Vital Signs (Past 12 Hours) Vital Signs Temp Pulse Pulse Pulse Resp BP BP 12/21/20 23:10 83 99 H 117/79 12/21/20 22:12 97 H 125/80 12/21/20 21:23 111 H 142/94 H 12/21/20 20:12 147/84 H 12/21/20 19:10 36.7 C 18 140/81 12/21/20 18:25 106 H 143/92 H 12/21/20 17:48 115 H 178/75 H 12/21/20 17:43 115 H 172/82 H 12/21/20 17:38 116 H 164/93 H 12/21/20 17:31 112 H 158/108 H 12/21/20 17:30 112 H 162/97 H 12/21/20 16:33 118 H 143/95 H 12/21/20 16:32 125 H 141/96 H 12/21/20 15:52 37.0 C 117 H 20 130/78 12/21/20 15:22 37.0 C 117 H 20 130/78 12/21/20 15:20 118 H 136/96 BP 12/21/20 23:10 137/81 12/21/20 22:12 12/21/20 21:23 12/21/20 20:12 12/21/20 19:10 12/21/20 18:25 12/21/20 17:48 12/21/20 17:43 12/21/20 17:38 12/21/20 17:31 12/21/20 17:30 12/21/20 16:33 12/21/20 16:32 12/21/20 15:52 12/21/20 15:22 12/21/20 15:20 PG Care Time/CCT Total # of Minutes Spent Total Time Spent with Patient: Total time spent is greater than 50% in coordination of care (as documented) at patient's floor/unit and/or counseling patient: Coding Level of Care Code None Diagnoses with 26 completed weeks gestation Z3A.26 Chronic hypertension I10
--- NOTE | 2020-12-22 08:02 | Obstetrical Progress Note ---
Date of Service December 22, 2020 Assessment & Plan (1) with 26 completed weeks gestation: (2) Chronic hypertension: Patient doing well here in the hospital. Blood pressure this am is 122/82. Declines psych consult as is followed actively as an outpatient and has a visit coming up. Today, will be up and about more, with more normal activity. Will continue to monitor pressures. Labs were all normal. 24 hour urine is being collected. no s/s of PET at this point. Fetus has been reassuring on the monitor. Subjective Patient feels "ok" this am. She is lying in bed. She had no acute issues overnight. BPS remained very good mostly 120s-130s/80s, minimum 117/79. Max blood pressure yesterday was 158/108 and 178/75. Patient notes she has had no episodes where she feels poorly and has elevated blood pressure. Notes no butcher /vision changes/n/v/ruq pain or increase in swelling. +FM. Baby has been reassuring for 26 weeks on the monitor Q shift. no cramping or contractions. no vb/lof. FOB is at bedside. Patient notes she just had her medication increased recently and has a f/u appt with her counselor and MD very shortly. She declines psych evaluation here in the hospital as is followed actively as an outpatient. She declines atarax as it just makes her too sleepy. Physical Exam Constitutional: WD/WN, vitals as above Cardiovascular: Extremities: no edema Gastrointestinal (Abdomen): soft, gravid, nt, no ruq pain Neurologic: patellar DTR's 2+ bilat, sensation intact Psychiatric: A+Ox3, euthymic affect Results & Data ([facility]) Vital Signs (Past 12 Hours) Vital Signs Temp Pulse Pulse Pulse Resp BP BP 12/22/20 06:20 76 18 122/82 12/22/20 03:20 86 18 128/85 12/22/20 00:15 36.5 C 90 90 18 133/85 12/21/20 23:10 83 99 H 117/79 12/21/20 22:12 97 H 125/80 12/21/20 21:23 111 H 142/94 H 12/21/20 20:12 147/84 H BP Pulse Ox 12/22/20 06:20 12/22/20 03:20 12/22/20 00:15 137/87 99 05/24/21 23:10 137/81 12/21/20 22:12 12/21/20 21:23 12/21/20 20:12 PG Care Time/CCT Total # of Minutes Spent Total Time Spent with Patient: Total time spent is greater than 50% in household coordinator rdination of care (as documented) at patient's floor/unit and/or counseling patient: Coding Level of Care Code 70135 Subseq Obs Care Lvl 1 Diagnoses with 26 completed weeks gestation Z3A.26 Chronic hypertension I10
--- NOTE | 2020-12-22 12:36 | Obstetrical Progress Note ---
Date of Service Patient feels well right now she has no headache no visual changes no right upper quadrant pain her blood pressures are in the normotensive range and had been stable over the last 12 hours I reviewed the case with Dr. Daly in the morning and her plan is to discharge the patient this afternoon after 24-hour urine is completed the patient knows which warning signs to call for including headache I will have her follow-up in the office later this week for assessment contact the office for further follow-up including ultrasounds. She is also seeing her therapist fairly soon and knows how to use her antianxiety medications as well December 22, 2020 Assessment & Plan Admission and Anticipated Discharge Date Admission Date: December 22, 2020 Results & Data ([facility]) Vital Signs (Past 12 Hours) Vital Signs Temp Pulse Pulse Resp BP 12/22/20 11:30 80 125/86 12/22/20 10:30 94 H 125/84 12/22/20 09:30 101 H 111/77 12/22/20 08:30 98.1 F 89 18 120/82 12/22/20 06:20 76 18 122/82 12/22/20 03:20 86 18 128/85 PG Care Time/CCT Total # of Minutes Spent Total Time Spent with Patient: Total time spent is greater than 50% in coordination of care (as documented) at patient's floor/unit and/or counseling patient: Coding Level of Care Code 21689 Office/Outpt Visit, Est
[2020-12-22 15:25] LABS: Patient Weight 132.9 kg
[2020-12-22 16:21] LABS: Creatinine 24 Hour Urine 1.9 gm/24 HR (0.6-2.5); Creatinine Clearance Urine 152.4 ml/min (88-128)
[2020-12-22 16:40] LABS: Urine Total Protein 18.1 mg/dl
--- NOTE | 2020-12-23 12:52 | Discharge Summary (DS) ---
ADMISSION DIAGNOSES: 1. Intrauterine at 26 weeks. 2. Chronic hypertension. 3. Reports of significantly elevated blood pressures outside of the office. DISCHARGE DIAGNOSES: 1. Intrauterine at 26 weeks. 2. Chronic hypertension. 3. Reports of significantly elevated blood pressures outside of the office. PROCEDURES: None. HISTORY OF PRESENT ILLNESS: The patient is a 25-year-old white female 2, para 1-0-0-1, with intrauterine at 26 and 2/7 weeks with an EDC of 03/27/2021. The patient is a transfer of care from [facility] at 14 weeks. Prior to her transfer, she was seen at [facility] and diagnosed as chronic hypertensive, so we have been treating her as such. She has a blood pressure cuff at home, but does not trust it. She is having her blood pressures taken by her landlord's with a large cuff per her report as she is a [employer] nurse. She is not currently on any medications. The patient has a history of preeclampsia with delivery at 37 weeks in her first . She required labetalol , but was eventually taken off of this. On Monday, she ended up presenting to the Emergency Department because she was not feeling right. She notes the last month that she has had episodes where she gets dizzy, nauseated, has vision changes and headaches. This is when she knows her blood pressure is elevated. She notes that she has elevated blood pressures at home as high as 190s/110s She came to labor and delivery on Monday where her pressures were improved to 150s/80s. Dr. Grimm was consulted at [facility]. In the end, the patient's pressures were improved and she was sent home to collect a 24-hour urine. Of note, the father of the baby left her late last week and she has noted more anxiety. He is a new father of the baby and has bipolar disorder and currently in a manic phase. The patient presented to the office on the day of admission for followup. She notes her pressures at home being taken by the nurse friend were 170s/100. She notes as high as 193/117 and lows in the 130s/70s. Her pressure in the office today was 132/90. Dr. Castro kindly called Dr. Grimm again and he requested that she be hospitalized for observation for 24 hours for blood pressure monitoring, getting labs, urine tox and questioning about anything that would make her pressures to increase. He recommended Atarax 25 mg p.r.n. for anxiety. The patient notes she took that over the weekend and it made her significantly tired, so she is unlikely to take that again. Her 24-hour urine was not done and will be started here. She notes she is drinking only water, no caffeine, no smoking, no drug use, no other medications noted. She currently denies headache, vision changes, nausea, vomiting, right upper quadrant pain. The patient has a history of depression and anxiety. She is currently actively seeing a counselor and a psychiatrist. She is currently on Pristiq and her dosage was just increased. She has a history of seizure disorder x1, not related to , thought to be a complicated migraine. For the rest of patient's detailed history and physical, please see her dictated history and physical. ASSESSMENT: This is an intrauterine at 26 and 2/7 weeks who presents with reported significantly elevated blood pressures outside of the office. HOSPITAL COURSE: The patient was admitted and her blood pressure was taken often. It was always taken while sitting after 5 minutes of rest at the level of her heart with a large cuff, which is the appropriate cuff for her. Her initial blood pressure in the office was 132/90. Her first blood pressure arriving on labor and delivery was 136/96 with a repeat of 130/78. A 24-hour urine was started. Labs were obtained, which were normal. Urine tox was negative. When the father of the baby arrived at the hospital, there was a significant increase in her blood pressure, maximum systolic 172, maximum diastolic 108. However, after being transferred over to the room and getting settled in, the patient never had another elevated blood pressure. Her blood pressure was as low as 111/77 and could run 111-137 over diastolics basically in the 80s. She remained asymptomatic throughout her hospital stay, she did not have an "episode" while she was with us. Given that her blood pressures were essentially normal that her labs were normal and that there were no signs and symptoms of preeclampsia, the patient was discharged home. The patient was continued to ask to take her blood pressures as prescribed by the [facility] and she will have a short-term followup in the office. She was advised to call if her pressures were elevated or she continued to experience episodes. The patient had at least 20 blood pressures taken and during this day, they were taken hourly. On the day of discharge, she ambulated and did some activity and again no elevated blood pressures. She was given strict precautions and will return as I said in short term for evaluation in the office. EVY
== END 2020-12-22 17:40 | disposition home or self-care (01) ==
LOC: 4S2 15:07 → OPB 15:07 → 4S1 15:08 → 4S2 18:31